=== PATIENT | male | born 1960 | race Caucasian/White ===

== ENCOUNTER 2016-10-04 04:52 | Emergency (ER) | payer BC ==
[2016-10-04] MEDS ORDERED: Bacitracin Oint 1 GM U/D Packet TOP ONE (05:11)
--- NOTE | 2016-10-04 05:18 | EDM.PDOC ---
ED HPI HEAD INJURY - General Chief Complaint: Head Injury Stated Complaint: FELL ON ICE- LARGE CUT ON BACK OF HEAD Time Seen by Provider: 10/04/16 05:17 Source of Information: Reports: Patient - History of Present Illness INITIAL COMMENTS - FREE TEXT/NARRATIVE: History of present illness: [] Patient presents with laceration near vertex, he slipped on ice going to his truck, denies loss of consciousness, he did have some mild dizziness on getting up however this is resolved pain the patient arrives to the area no fever nausea vomiting chills sweats no chest pain shortness breath headache dizziness or palpitation no bowel or urine symptoms Review of systems: As per history of present illness and below otherwise all systems reviewed and negative. Past medical history: As per history of present illness and as reviewed below otherwise noncontributory. Surgical history: As per history of present illness and as reviewed below otherwise noncontributory. Social history: No reported history of drug or alcohol abuse. Family history: As per history of present illness and as reviewed below otherwise noncontributory. Physical exam: HEENT: Atraumatic, normocephalic, pupils reactive, negative for conjunctival pallor or scleral icterus, mucous membranes moist, throat clear, neck supple, nontender, trachea midline. Lungs: Clear to auscultation, breath sounds equal bilaterally, chest nontender. Heart: S1S2, regular, negative for clicks, rubs, or JVD. Abdomen: Soft, nondistended, nontender. Negative for masses or hepatosplenomegaly. Negative for costovertebral tenderness. Pelvis: Stable nontender. Genitourinary: Deferred. Rectal: Deferred. Extremities: Atraumatic, negative for cords or calf pain. Neurovascular unremarkable. Neuro: Awake, alert, oriented. Cranial nerves II through XII unremarkable. Cerebellum unremarkable. Motor and sensory unremarkable throughout. Exam nonfocal. Skin 2 inch linear laceration running vertically to vertex Diagnostics: [] Patient refused head CT Therapeutics: [] Tetanus status is up-to-date #4 lyndsay placed without complication or complaint Impression: [] 2 inch linear laceration Definitive disposition and diagnosis as appropriate pending reevaluation and review of above. - Related Data Allergies/ADRs: Allergies Allergy/AdvReac Type Severity Reaction Status Date / Time No Known Allergies Allergy Verified 10/04/16 04:55 Home Meds: Home Meds Clopidogrel [Plavix] 75 mg PO DAILY 12/09/13 [History] Lisinopril 10 mg PO DAILY 12/09/13 [History] Metoprolol Succinate [Toprol XL] 25 mg PO DAILY 12/09/13 [History] Rosuvastatin [Crestor] 40 mg PO DAILY 12/09/13 [History] metFORMIN [metFORMIN XR] 500 mg PO BIDM 12/09/13 [History] Aspirin 81 mg PO DAILY 05/22/15 [History] Glimepiride 1 mg PO DAILY 05/22/15 [History] Nitroglycerin [Nitrostat] 0.4 mg PO ASDIRECTED 05/22/15 [History] hydrOXYzine HCl [hydrOXYzine] 25 mg PO DAILY 05/22/15 [History] Past Medical History - Past Health History Medical/Surgical History: Denies Medical/Surgical History HEENT History: Reports: Impaired vision Cardiovascular History: Reports: High cholesterol, Hypertension, [place] - Past Surgical History Other Cardiovascular Surgeries/Procedures: open heart surgery with 3 or 4 stents on his heart Other Musculoskeletal Surgeries/Procedures:: lower back surgery Social & Family History - Family History Family Medical History: Noncontributory - Tobacco Use Smoking Status *Q: Current Every Day Smoker Years of Tobacco use: 30 Packs/Tins Daily: 1 Used Tobacco, but Quit: Yes Month Tobacco Last Used: sep 2013 - Caffeine Use Caffeine Use: Reports: Coffee Caffeine Use Comment: 1cup every other day - Alcohol Use Days Per Week of Alcohol Use: 0 - Recreational Drug Use Recreational Drug Use: No ED ROS GENERAL - Review of Systems Review Of Systems: ROS reveals no pertinent complaints other than HPI. ED EXAM, HEAD INJURY - Physical Exam Exam: See Below Course - Vital Signs Last Recorded V/S: Last Vital Signs Temp 36.2 C 10/04/16 04:55 Pulse 95 10/04/16 04:55 Resp 19 10/04/16 04:55 BP 173/92 H 10/04/16 04:55 Pulse Ox 93 L 10/04/16 04:55 - Orders/Labs/Meds Meds: Medications Discontinued Medications Generic Name Dose Route Start Last Admin Trade Name Freq PRN Reason Stop Dose Admin Bacitracin 1 dose 10/04/16 05:11 Bacitracin Oint 1 Gm TOP 10/04/16 05:12 ONETIME ONE Departure - Departure Time of Disposition: 05:17 Disposition: Home, Self-Care 01 Condition: good Clinical Impression: Laceration, Concussion with no loss of consciousness Clinical Impression: (Ruled Out): Concussion injury of brain Forms: ED Department Discharge Additional Instructions: Standard wound care instruction Keep wound clean and dry for 48 hours Standard head injury precaution as discussed Return if symptoms persist or worsen or new concerning symptomatology develops Lyndsay out in 5 days
[2016-10-04 05:34] VITALS: BP 130/85
== END 2016-10-04 05:32 | disposition home or self-care (01) ==
LOC: MW.ED 04:52
DX: S01.81XA Laceration without foreign body of other part of head, initial encounter (principal); S06.0X0A Concussion without loss of consciousness, initial encounter; E78.00 Pure hypercholesterolemia, unspecified; I10 Essential (primary) hypertension; I25.2 Old myocardial infarction; F17.210 Nicotine dependence, cigarettes, uncomplicated; Z79.899 Other long term (current) drug therapy; Z79.82 Long term (current) use of aspirin; Z98.890 Other specified postprocedural states; W00.0XXA Fall on same level due to ice and snow, initial encounter
CPT/HCPCS: 99282; 99283

== ENCOUNTER → 2016-12-04 | Outpatient (CLI) | payer BC ==
[2016-12-04 08:57] LABS: CHLORIDE,CL 100 mmol/L (98-110); SODIUM,NA 136 mmol/L (136-146)
== END ==
LOC: MW.CHFP 07:54
PROVIDERS: ATTEND Family Medicine
DX: E11.9 Type 2 diabetes mellitus without complications (principal); I25.10 Atherosclerotic heart disease of native coronary artery without angina pectoris; E78.00 Pure hypercholesterolemia, unspecified
CPT/HCPCS: 36415; 80053; 80061; 82044; 83036

== ENCOUNTER 2017-02-04 08:12 | Emergency (ER) | payer BC ==
--- NOTE | 2017-02-04 08:27 | EDM.PDOC ---
ED HPI GENERAL MEDICAL PROBLEM - General Chief Complaint: Skin Complaint Stated Complaint: SORE ON TAIL BONE Time Seen by Provider: 02/04/17 08:26 Source of Information: Reports: Patient - History of Present Illness INITIAL COMMENTS - FREE TEXT/NARRATIVE: HISTORY AND PHYSICAL: History of present illness: []Patient presents with induration on his left buttock in the area of a pilonidal cyst however does not appear to be pilonidal at this time in origin, there is definite redness tenderness and induration there is no fluctuance at this time No fever nausea vomiting chills sweats no drainage for culture Review of systems: As per history of present illness and below otherwise all systems reviewed and negative. Past medical history: As per history of present illness and as reviewed below otherwise noncontributory. Surgical history: As per history of present illness and as reviewed below otherwise noncontributory. Social history: No reported history of drug or alcohol abuse. Family history: As per history of present illness and as reviewed below otherwise noncontributory. Physical exam: HEENT: Atraumatic, normocephalic, pupils reactive, negative for conjunctival pallor or scleral icterus, mucous membranes moist, throat clear, neck supple, nontender, trachea midline. Lungs: Clear to auscultation, breath sounds equal bilaterally, chest nontender. Heart: S1S2, regular, negative for clicks, rubs, or JVD. Abdomen: Soft, nondistended, nontender. Negative for masses or hepatosplenomegaly. Negative for costovertebral tenderness. Pelvis: Stable nontender. Genitourinary: Deferred. Rectal: Deferred. Extremities: Atraumatic, negative for cords or calf pain. Neurovascular unremarkable. Neuro: Awake, alert, oriented. Cranial nerves II through XII unremarkable. Cerebellum unremarkable. Motor and sensory unremarkable throughout. Exam nonfocal. Skin as per history of present illness otherwise unremarkable Diagnostics: []No drainage for culture Therapeutics: [] 's 1 g IM Bactrim double strength by mouth twice a day #20 no refill Warm pack Return if symptoms persist or worsen Impression: []Cellulitis left buttock, gluteal cleft Definitive disposition and diagnosis as appropriate pending reevaluation and review of above. left buttocks Pain Score (Numeric/FACES): 6 - Related Data Allergies Allergy/AdvReac Type Severity Reaction Status Date / Time No Known Allergies Allergy Verified 02/04/17 08:20 Home Meds: Home Meds Clopidogrel [Plavix] 75 mg PO DAILY 12/09/13 [History] Lisinopril 10 mg PO DAILY 12/09/13 [History] Metoprolol Succinate [Toprol XL] 25 mg PO DAILY 12/09/13 [History] Rosuvastatin [Crestor] 40 mg PO DAILY 12/09/13 [History] metFORMIN [metFORMIN XR] 500 mg PO BIDM 12/09/13 [History] Aspirin 81 mg PO DAILY 05/22/15 [History] Glimepiride 1 mg PO DAILY 05/22/15 [History] Nitroglycerin [Nitrostat] 0.4 mg PO ASDIRECTED 05/22/15 [History] hydrOXYzine HCl [hydrOXYzine] 25 mg PO DAILY 05/22/15 [History] Past Medical History - Past Health History Medical/Surgical History: Denies Medical/Surgical History HEENT History: Reports: Impaired Vision Cardiovascular History: Reports: High Cholesterol, Hypertension, [place] - Past Surgical History Other Musculoskeletal Surgeries/Procedures:: lower back surgery Social & Family History - Family History Family Medical History: Noncontributory - Tobacco Use Smoking Status *Q: Current Every Day Smoker Years of Tobacco use: 30 Packs/Tins Daily: 0.5 Used Tobacco, but Quit: Yes Month Tobacco Last Used: sep 2013 - Caffeine Use Caffeine Use: Reports: Coffee Caffeine Use Comment: 1cup every other day - Alcohol Use Days Per Week of Alcohol Use: 0 - Recreational Drug Use Recreational Drug Use: No ED ROS GENERAL - Review of Systems Review Of Systems: ROS reveals no pertinent complaints other than HPI. ED EXAM, SKIN/RASH Exam: See Below Course - Vital Signs Last Recorded V/S: Last Vital Signs Temp 35.7 C 02/04/17 08:20 Pulse 93 02/04/17 08:20 Resp 18 02/04/17 08:20 BP 110/88 02/04/17 08:20 Pulse Ox 98 02/04/17 08:20 - Orders/Labs/Meds Orders: Active Orders 24 hr Category Date Time Status Ertapenem [INVanz] Med 02/04/17 08:38 Stat 1 gm IM NOW STA Departure - Departure Time of Disposition: 08:40 Disposition: Home, Self-Care 01 Condition: Good Clinical Impression: Cellulitis - Discharge Information Forms: ED Department Discharge Additional Instructions: Medication as prescribed Warm pack 20 minute intervals 3 times daily to promote drainage Return if symptoms persist or worsen Follow-up with primary care in one week [facility] [address] [place] [id number] The following information is given to patients seen in the emergency department who are being discharged to home. This information is to outline your options for follow-up care. We provide all patients seen in our emergency department with a follow-up referral. The need for follow-up, as well as the timing and circumstances, are variable depending upon the specifics of your emergency department visit. If you don't have a primary care physician on staff, we will provide you with a referral. We always advise you to contact your personal physician following an emergency department visit to inform them of the circumstance of the visit and for follow-up with them and/or the need for any referrals to a consulting specialist. The emergency department will also refer you to a specialist when appropriate. This referral assures that you have the opportunity for follow-up care with a specialist. All of these measure are taken in an effort to provide you with optimal care, which includes your follow-up. Under all circumstances we always encourage you to contact your private physician who remains a resource for coordinating your care. When calling for follow-up care, please make the office aware that this follow-up is from your recent emergency room visit. If for any reason you are refused follow-up, please contact the [facility] emergency department at and asked to speak to the emergency department charge nurse. - My Orders Last 24 Hours: My Active Orders 02/04/17 08:38 Ertapenem [INVanz] 1 gm IM NOW STA - Assessment/Plan Last 24 Hours: My Active Orders 02/04/17 08:38 Ertapenem [INVanz] 1 gm IM NOW STA
[2017-02-04] MEDS ORDERED: Ertapenem 1 GM Vial IM STA (08:38)
[2017-02-04] MEDS ORDERED: Lidocaine 2% 5 ML SDV INJECT ONE (08:44)
[2017-02-04 09:21] VITALS: BP 128/83
== END 2017-02-04 09:14 | disposition home or self-care (01) ==
LOC: MW.ED 08:12
DX: L03.317 Cellulitis of buttock (principal); E78.00 Pure hypercholesterolemia, unspecified; I10 Essential (primary) hypertension; I25.2 Old myocardial infarction; F17.210 Nicotine dependence, cigarettes, uncomplicated; Z79.84 Long term (current) use of oral hypoglycemic drugs; Z79.82 Long term (current) use of aspirin; Z79.899 Other long term (current) drug therapy
CPT/HCPCS: 96372; 99282; J1335; 99283

== ENCOUNTER 2017-02-05 08:52 | Inpatient (IN) | payer BC ==
[2017-02-05] MEDS ORDERED: Sodium Chloride 0.9% 10 ML Syringe FLUSH PRN (09:17)
[2017-02-05] MEDS ORDERED: Sodium Chloride 0.9% 2.5 ML Syringe FLUSH PRN (09:17)
[2017-02-05] MEDS ORDERED: Sodium Chloride 0.9% 1,000 ML IV ONE (09:18)
[2017-02-05] MEDS ORDERED: Ondansetron 4 MG/2 ML SDV IVPUSH ONE (09:18)
[2017-02-05] MEDS ORDERED: fentaNYL 100 MCG/2 ML SDV IVPUSH ONE (09:18)
[2017-02-05] MEDS ORDERED: Iopamidol 755 MG/ML 500 ML Multipack Bottle IVPUSH STA (09:21)
--- NOTE | 2017-02-05 09:25 | EDM.PDOC ---
ED HPI GENERAL MEDICAL PROBLEM - General Chief Complaint: Skin Complaint Stated Complaint: PAINFUL CYST ON TAILBONE Time Seen by Provider: 02/05/17 09:16 - History of Present Illness INITIAL COMMENTS - FREE TEXT/NARRATIVE: HISTORY AND PHYSICAL: History of present illness: Patient is 56-year-old white male with history of diabetes who presents with a concern of pain swelling and erythema in his left buttock this is inferior to the cleft and extends along the medial aspect of his left buttock with induration and erythema warmth and exquisite tenderness he denies fever chills states the pain is got increasingly worse since yesterday when he was seen in the emergency department he did not follow through when given prescriptions filled Review of systems: As per history of present illness and below otherwise all systems reviewed and negative. Past medical history: As per history of present illness and as reviewed below otherwise noncontributory. Surgical history: As per history of present illness and as reviewed below otherwise noncontributory. Social history: No reported history of drug or alcohol abuse. Family history: As per history of present illness and as reviewed below otherwise noncontributory. Physical exam: HEENT: Atraumatic, normocephalic, pupils reactive, negative for conjunctival pallor or scleral icterus, mucous membranes moist, throat clear, neck supple, nontender, trachea midline. Lungs: Clear to auscultation, breath sounds equal bilaterally, chest nontender. Heart: S1S2, regular, negative for clicks, rubs, or JVD. Abdomen: Soft, nondistended, nontender. Negative for masses or hepatosplenomegaly. Negative for costovertebral tenderness. Pelvis: Stable nontender. Genitourinary: Deferred. Rectal: Patient is proximal 4-5 cm medial aspect of the left buttock that extends inferiorly and against distal to the cleft this is indurated with exquisite tenderness to palpation in precludes rectal examination Extremities: Atraumatic, negative for cords or calf pain. Neurovascular unremarkable. Neuro: Awake, alert, oriented. Cranial nerves II through XII unremarkable. Cerebellum unremarkable. Motor and sensory unremarkable throughout. Exam nonfocal. Diagnostics: CBC CMP PT/INR blood culture 2 chest x-ray CT pelvis with IV contrast Therapeutics: Normal saline 1 L bolus vancomycin 1 g IV Impression: #1 cellulitis left buttock with probable abscess #2 diabetes Definitive disposition and diagnosis as appropriate pending reevaluation and review of above. left buttock area Pain Score (Numeric/FACES): 9 - Related Data Allergies Allergy/AdvReac Type Severity Reaction Status Date / Time No Known Allergies Allergy Verified 02/05/17 09:00 Home Meds: Home Meds Clopidogrel [Plavix] 75 mg PO DAILY 12/09/13 [History] Lisinopril 10 mg PO DAILY 12/09/13 [History] Metoprolol Succinate [Toprol XL] 25 mg PO DAILY 12/09/13 [History] Rosuvastatin [Crestor] 40 mg PO DAILY 12/09/13 [History] metFORMIN [metFORMIN XR] 500 mg PO BIDM 12/09/13 [History] Aspirin 81 mg PO DAILY 05/22/15 [History] Glimepiride 1 mg PO DAILY 05/22/15 [History] Nitroglycerin [Nitrostat] 0.4 mg PO ASDIRECTED 05/22/15 [History] hydrOXYzine HCl [hydrOXYzine] 25 mg PO DAILY 05/22/15 [History] Past Medical History - Past Health History Medical/Surgical History: Denies Medical/Surgical History HEENT History: Reports: Impaired Vision Cardiovascular History: Reports: High Cholesterol, Hypertension, [place] Endocrine/Metabolic History: Reports: Diabetes, Type II - Past Surgical History Other Musculoskeletal Surgeries/Procedures:: lower back surgery Social & Family History - Family History Family Medical History: Noncontributory - Tobacco Use Smoking Status *Q: Current Every Day Smoker Years of Tobacco use: 30 Packs/Tins Daily: 1 Used Tobacco, but Quit: Yes Month Tobacco Last Used: sep 2013 - Caffeine Use Caffeine Use: Reports: Coffee Caffeine Use Comment: 1cup every other day - Alcohol Use Days Per Week of Alcohol Use: 0 - Recreational Drug Use Recreational Drug Use: No ED ROS GENERAL - Review of Systems Review Of Systems: ROS reveals no pertinent complaints other than HPI. ED EXAM, SKIN/RASH Exam: See Below (See dictation) Course - Vital Signs Last Recorded V/S: Last Vital Signs Temp 36.1 C 02/05/17 09:01 Pulse 98 02/05/17 09:01 Resp 20 02/05/17 09:01 BP 118/87 02/05/17 09:01 Pulse Ox 94 L 02/05/17 09:01 - Orders/Labs/Meds Orders: Active Orders 24 hr Category Date Time Status Chest 2V [CR] Stat Exams 02/05/17 09:17 Taken Pelvis w Cont [CT] Stat Exams 02/05/17 09:17 Taken CULTURE BLOOD [BC] Stat Lab 02/05/17 09:30 Received CULTURE BLOOD [BC] Stat Lab 02/05/17 09:41 Received UA W/MICROSCOPIC [URIN] Stat Lab 02/05/17 09:16 Uncollected Sodium Chloride 0.9% [Saline Flush] Med 02/05/17 09:17 Active 10 ml FLUSH ASDIRECTED PRN Sodium Chloride 0.9% [Saline Flush] Med 02/05/17 09:17 Active 2.5 ml FLUSH ASDIRECTED PRN Blood Culture x2 Reflex Set [OM.PC] Stat Oth 02/05/17 09:16 Ordered Saline Lock Insert [OM.PC] Stat Oth 02/05/17 09:16 Ordered Medication Orders Sodium Chloride (Saline Flush) 10 ml FLUSH ASDIRECTED PRN PRN Reason: Keep Vein Open Sodium Chloride (Saline Flush) 2.5 ml FLUSH ASDIRECTED PRN PRN Reason: Keep Vein Open Labs: Laboratory Tests 02/05/17 02/05/17 02/05/17 Range/Units 09:41 09:41 09:41 WBC 13.77 H (4.0-11.0) K/uL RBC 5.70 (4.50-5.90) M/uL Hgb 16.8 (13.0-17.0) g/dL Hct 48.9 (38.0-50.0) % MCV 85.8 (80.0-98.0) fL MCH 29.5 (27.0-32.0) pg MCHC 34.4 (31.0-37.0) g/dL RDW Std Deviation 39.8 (28.0-62.0) fl RDW Coeff of Maegan 13 (11.0-15.0) % Plt Count 256 (150-400) K/uL MPV 11.80 (7.40-12.00) fL Neut % (Auto) 76.0 (48.0-80.0) % Lymph % (Auto) 12.3 L (16.0-40.0) % [place] % (Auto) 10.8 (0.0-15.0) % Eos % (Auto) 0.7 (0.0-7.0) % Baso % (Auto) 0.2 (0.0-1.5) % Neut # (Auto) 10.5 H (1.4-5.7) K/uL Lymph # (Auto) 1.7 (0.6-2.4) K/uL [place] # (Auto) 1.5 H (0.0-0.8) K/uL Eos # (Auto) 0.1 (0.0-0.7) K/uL Baso # (Auto) 0.0 (0.0-0.1) K/uL INR 0.94 (0.86-1.11) ABG pH (7.35-7.45) ABG pCO2 (35-45) mmHG ABG pO2 (75-100) mmHG ABG HCO3 (22-26) mEq/L ABG Total CO2 ABG Base Excess (-2.0-2.0) Sodium 128 L (136-146) mmol/L Potassium 4.3 (3.5-5.1) mmol/L Chloride 94 L (98-110) mmol/L Carbon Dioxide 21 (21-31) mmol/L BUN 16 (6.0-23.0) mg/dL Creatinine 1.5 (0.6-1.5) mg/dL Est Cr Clr Drug Dosing 57.17 mL/min Estimated GFR (MDRD) 48.1 ml/min Glucose 682 H* (60-110) mg/dL POC Glucose (60-110) mg/dL Calcium 9.6 (8.8-10.8) mg/dL Total Bilirubin 0.8 (0.1-1.5) mg/dL AST 20 (5-40) IU/L ALT 19 (8-54) IU/L Alkaline Phosphatase 142 (40-150) Total Protein 7.8 (6.0-8.0) g/dL Albumin 3.9 (3.5-5.0) g/dL Globulin 3.9 H (2.0-3.5) g/dL Albumin/Globulin Ratio 1.0 L (1.3-2.8) 02/05/17 02/05/17 Range/Units 11:05 11:09 WBC (4.0-11.0) K/uL RBC (4.50-5.90) M/uL Hgb (13.0-17.0) g/dL Hct (38.0-50.0) % MCV (80.0-98.0) fL MCH (27.0-32.0) pg MCHC (31.0-37.0) g/dL RDW Std Deviation (28.0-62.0) fl RDW Coeff of Maegan (11.0-15.0) % Plt Count (150-400) K/uL MPV (7.40-12.00) fL Neut % (Auto) (48.0-80.0) % Lymph % (Auto) (16.0-40.0) % [place] % (Auto) (0.0-15.0) % Eos % (Auto) (0.0-7.0) % Baso % (Auto) (0.0-1.5) % Neut # (Auto) (1.4-5.7) K/uL Lymph # (Auto) (0.6-2.4) K/uL [place] # (Auto) (0.0-0.8) K/uL Eos # (Auto) (0.0-0.7) K/uL Baso # (Auto) (0.0-0.1) K/uL INR (0.86-1.11) ABG pH 7.358 (7.35-7.45) ABG pCO2 49 H (35-45) mmHG ABG pO2 52 L (75-100) mmHG ABG HCO3 28 H (22-26) mEq/L ABG Total CO2 24.1 ABG Base Excess 1.6 (-2.0-2.0) Sodium (136-146) mmol/L Potassium (3.5-5.1) mmol/L Chloride (98-110) mmol/L Carbon Dioxide (21-31) mmol/L BUN (6.0-23.0) mg/dL Creatinine (0.6-1.5) mg/dL Est Cr Clr Drug Dosing mL/min Estimated GFR (MDRD) ml/min Glucose (60-110) mg/dL POC Glucose 454 H (60-110) mg/dL Calcium (8.8-10.8) mg/dL Total Bilirubin (0.1-1.5) mg/dL AST (5-40) IU/L ALT (8-54) IU/L Alkaline Phosphatase (40-150) Total Protein (6.0-8.0) g/dL Albumin (3.5-5.0) g/dL Globulin (2.0-3.5) g/dL Albumin/Globulin Ratio (1.3-2.8) Meds: Medications Generic Name Dose Route Start Last Admin Trade Name Freq PRN Reason Stop Dose Admin Sodium Chloride 10 ml 02/05/17 09:17 Saline Flush FLUSH ASDIRECTED PRN Keep Vein Open Sodium Chloride 2.5 ml 02/05/17 09:17 Saline Flush FLUSH ASDIRECTED PRN Keep Vein Open Discontinued Medications Generic Name Dose Route Start Last Admin Trade Name Freq PRN Reason Stop Dose Admin Fentanyl 50 mcg 02/05/17 09:18 02/05/17 09:44 Sublimaze IVPUSH 02/05/17 09:19 50 mcg ONETIME ONE Administration Sodium Chloride 1,000 mls @ 999 mls/hr 02/05/17 09:18 02/05/17 09:43 Normal Saline IV 02/05/17 10:18 999 mls/hr STAT ONE Administration Vancomycin HCl 1 gm/ Sodium 250 mls @ 250 mls/hr 02/05/17 09:18 02/05/17 09: 44 Chloride IV 02/05/17 10:17 250 mls/hr ONETIME ONE Administration Insulin Human Regular 10 unit 02/05/17 10:29 02/05/17 11:06 Novolin R IVPUSH 02/05/17 10:30 10 units ONETIME ONE Administration Protocol Insulin Human Regular 10 unit 02/05/17 10:30 02/05/17 11:06 Novolin R SUBCUT 02/05/17 10:31 10 units ONETIME ONE Administration Protocol Iopamidol 100 ml 02/05/17 09:21 Isovue Multipack-370 (76%) IVPUSH 02/05/17 09:22 ONETIME STA Iopamidol 60 ml 02/05/17 10:41 02/05/17 10:42 Isovue-300 (61%) IV 02/05/17 10:42 60 ml ONETIME STA Administration Ondansetron HCl 4 mg 02/05/17 09:18 02/05/17 09:44 Zofran IVPUSH 02/05/17 09:19 4 mg ONETIME ONE Administration Departure - Departure Time of Disposition: 11:22 Disposition: Admitted As Inpatient 64 Condition: Good Clinical Impression: Abscess, Cellulitis, Diabetes - Discharge Information Forms: ED Department Discharge - My Orders Last 24 Hours: My Active Orders 02/05/17 09:16 UA W/MICROSCOPIC [URIN] Stat Blood Culture x2 Reflex Set [OM.PC] Stat Saline Lock Insert [OM.PC] Stat 02/05/17 09:17 Chest 2V [CR] Stat Pelvis w Cont [CT] Stat Sodium Chloride 0.9% [Saline Flush] 10 ml FLUSH ASDIRECTED PRN Sodium Chloride 0.9% [Saline Flush] 2.5 ml FLUSH ASDIRECTED PRN 02/05/17 09:30 CULTURE BLOOD [BC] Stat 02/05/17 09:41 CULTURE BLOOD [BC] Stat - Assessment/Plan Last 24 Hours: My Active Orders 02/05/17 09:16 UA W/MICROSCOPIC [URIN] Stat Blood Culture x2 Reflex Set [OM.PC] Stat Saline Lock Insert [OM.PC] Stat 02/05/17 09:17 Chest 2V [CR] Stat Pelvis w Cont [CT] Stat Sodium Chloride 0.9% [Saline Flush] 10 ml FLUSH ASDIRECTED PRN Sodium Chloride 0.9% [Saline Flush] 2.5 ml FLUSH ASDIRECTED PRN 02/05/17 09:30 CULTURE BLOOD [BC] Stat 02/05/17 09:41 CULTURE BLOOD [BC] Stat
[2017-02-05] MEDS ORDERED: Insulin Regular, Human 100 Units/ML 10 ML Vial IVPUSH ONE (10:29)
[2017-02-05] MEDS ORDERED: Insulin Regular, Human 100 Units/ML 10 ML Vial SUBCUT ONE (10:30)
[2017-02-05] MEDS ORDERED: Iopamidol 612 MG/ML 30 ML SDV IV STA (10:41)
[2017-02-05] MEDS ORDERED: Ondansetron 4 MG/2 ML SDV IVPUSH PRN (12:05)
[2017-02-05] MEDS ORDERED: oxyCODONE 5 MG Tab PO PRN (12:05)
[2017-02-05] MEDS ORDERED: Enoxaparin 40 MG/0.4 ML Syringe SUBCUT SCH ×2 (12:15→21:00)
--- NOTE | 2017-02-05 12:27 | PCM.HP ---
H&P History of Present Illness - General Date of Service: 02/05/17 Admit Problem/Dx: Cellulitis with abscess to L buttock Source of Information: Patient History Limitations: Reports: No Limitations - History of Present Illness Initial Comments - Free Text/Narative: This 56 year old male with pmh of CAD, hx SC several years ago with 3-4 stents, DM type 2, and tobacco dependence presented to the ED this morning with complaints of worsening pain and swelling to L buttock. He was here yesterday for same complaint, was sent home with Bactrim DS, but was unable to fill it due to the holiday. He reports the pain is 10/10 when he is moving or sitting, he currently is lying on his side and pain is tolerable 3/10. He reports this pain started 4-5 days ago and has progressively worsened to the point he sought ED evaluation. He denies drainage to buttock. He denies fevers, chills, chest pain, SOB or palpitations. He denies N/V abdominal pain, black or bloody BMs, and no urinary symptoms. He denies recent trauma to buttock, no scrapes or abrasion. Never had something like this before. He reports taking his medications normally, over the last few days he has noticed polyuria and polydypsia. BS running 200s at home. In the ED leukocytosis noted at 13,000, Na 128, Cl 94, BS 682 (corrected serum Na 139). CXR negative. Pelivs CT reveals subcutaenous abscess measuring 2.5 cm within left gluteal fold, no evidence of abscess or inflammation about the rectum or ischial rectal fossa fat, no evidence of osteomyelitis. He will be admitted for cellulitis with abscess. Dr. Arboleda, general surgery, consulted PCP, Dr Jc. left buttock area Pain Score (Numeric/FACES): 9 - Related Data Allergies/Adverse Reactions: Allergies Allergy/AdvReac Type Severity Reaction Status Date / Time No Known Allergies Allergy Verified 02/05/17 09:00 Home Medications: Home Meds Clopidogrel [Plavix] 75 mg PO DAILY 12/09/13 [History] Lisinopril 10 mg PO DAILY 12/09/13 [History] Metoprolol Succinate [Toprol XL] 25 mg PO DAILY 12/09/13 [History] Rosuvastatin [Crestor] 40 mg PO DAILY 12/09/13 [History] metFORMIN [metFORMIN XR] 500 mg PO BIDM 12/09/13 [History] Aspirin 81 mg PO DAILY 05/22/15 [History] Glimepiride 1 mg PO DAILY 05/22/15 [History] Nitroglycerin [Nitrostat] 0.4 mg PO ASDIRECTED 05/22/15 [History] hydrOXYzine HCl [hydrOXYzine] 25 mg PO DAILY 05/22/15 [History] Past Medical History - Past Health History Medical/Surgical History: Denies Medical/Surgical History HEENT History: Reports: Impaired Vision Cardiovascular History: Reports: High Cholesterol, Hypertension, [place] Respiratory History: Denies: COPD Endocrine/Metabolic History: Reports: Diabetes, Type II - Past Surgical History Other Musculoskeletal Surgeries/Procedures:: lower back surgery Social & Family History - Family History Family Medical History: Noncontributory - Tobacco Use Smoking Status *Q: Current Every Day Smoker Years of Tobacco use: 30 Packs/Tins Daily: 1 Used Tobacco, but Quit: Yes Month Tobacco Last Used: sep 2013 - Caffeine Use Caffeine Use: Reports: Coffee Caffeine Use Comment: 1cup every other day - Alcohol Use Days Per Week of Alcohol Use: 0 - Recreational Drug Use Recreational Drug Use: No H&P Review of Systems - Review of Systems: Review Of Systems: See Below General: Reports: No Symptoms. Denies: Fever, Chills, Malaise HEENT: Reports: No Symptoms. Denies: Sinus Congestion Pulmonary: Reports: No Symptoms. Denies: Shortness of Breath, Cough, Sputum Cardiovascular: Reports: No Symptoms. Denies: Chest Pain, Palpitations, Edema Gastrointestinal: Reports: No Symptoms. Denies: Abdominal Pain, Black Stool, Bloody Stool, Nausea, Vomiting Genitourinary: Reports: No Symptoms Musculoskeletal: Reports: No Symptoms. Denies: Neck Pain, Back Pain Skin: Reports: Erythema (pain to L gluteal fold) Hematologic/Lymphatic: Reports: No Symptoms Immunologic: Reports: No Symptoms Exam - Exam Exam: See Below - Vital Signs Vital Signs: Last Vital Signs Temp 97 F 02/05/17 09:01 Pulse 85 02/05/17 11:26 Resp 18 02/05/17 11:26 BP 98/53 L 02/05/17 11:26 Pulse Ox 91 L 02/05/17 11:26 Weight: 94 kg - Exam General: Alert, Oriented, Cooperative HEENT: Conjunctiva Clear, Mucosa Moist & [place] Lungs: Clear to Auscultation, Normal Respiratory Effort Cardiovascular: Regular Rate, Regular Rhythm Abdomen: Normal Bowel Sounds, Soft. No: Distention, Guarding, Rigidity, Tenderness Rectal (Males) Exam: Other (L gluteal fold has induration 2-3 cm out from center , fluctuance noted to center of erythema. Very tender to palpation. ) Extremities: Normal Inspection, Normal Pulses Neuro Extensive - Mental Status: Alert, Oriented x3 Neuro Extensive - Motor, Sensory, Reflexes: CN II-XII Intact Psychiatric: Alert, Normal Affect, Normal Mood - Patient Data Result Diagrams: 02/05/17 09:41 02/05/17 09:41 *Q Meaningful Use (ADM) - VTE *Q VTE Criteria *Q: - VTE Risk Assess *Q Each Risk Factor Represents 1 Point: Age 41 - 59 years, Minor Surgery Planned Total Score 1 Point Risk Factors: 2 Each Risk Factor Represents 2 Points: None Total Score 2 Point Risk Factors: 0 Each Risk Factor Represents 3 Points: None Total Score 3 Point Risk Factors: 0 Each Risk Factor Represents 5 Points: None Total Score 5 Point Risk Factors: 0 Venous Thromboembolism Risk Factor Score *Q: 2 - Stroke *Q Stroke Criteria *Q: - AMI *Q AMI Criteria *Q: - Problem List (1) Abscess SNOMED Code(s): 055237577 ICD Code: L02.91 - CUTANEOUS ABSCESS, UNSPECIFIED Status: Acute Current Visit: Yes Problem Details: L gluteal fold (2) DM type 2 (diabetes mellitus, type 2) SNOMED Code(s): 98685008 ICD Code: E11.9 - TYPE 2 DIABETES MELLITUS WITHOUT COMPLICATIONS Status: Chronic Current Visit: Yes Qualifiers: Diabetes mellitus complication status: with hyperglycemia Diabetes mellitus detention insulin use: without detention use Qualified Code(s): E11.65 - Type 2 diabetes mellitus with hyperglycemia (3) CAD (coronary artery disease) SNOMED Code(s): 57168605 ICD Code: I25.10 - ATHSCL HEART DISEASE OF [place] CORONARY ARTERY W/O ANG PCTRS Status: Chronic Current Visit: Yes Qualifiers: Coronary Disease-Associated Artery/Lesion type: [place] artery [place] vs. transplanted heart: [place] heart Associated angina: without angina Qualified Code(s): I25.10 - Atherosclerotic heart disease of [place] coronary artery without angina pectoris (4) Hx of myocardial infarction SNOMED Code(s): 761796247 ICD Code: I25.2 - OLD MYOCARDIAL INFARCTION Status: Chronic Current Visit : Yes (5) Tobacco abuse SNOMED Code(s): 961173174, 232852043 ICD Code: Z72.0 - TOBACCO USE Status: Chronic Current Visit: Yes Problem List Initiated/Reviewed/Updated: Yes Orders Last 24hrs: Active Orders 24 hr Category Date Time Status Blood Glucose Check, Bedside [RC] TIDAC Care 02/05/17 12:13 Ordered Intake and Output [RC] QSHIFT Care 02/05/17 12:05 Ordered May Shower [RC] ASDIRECTED Care 02/05/17 12:05 Ordered Notify Provider Consults [RC] ASDIRECTED Care 02/05/17 12:08 Ordered Oxygen Therapy [RC] PRN Care 02/05/17 12:05 Ordered Up ad Elo [RC] ASDIRECTED Care 02/05/17 12:05 Ordered VTE/DVT Education [RC] PER UNIT ROUTINE Care 02/05/17 12:05 Ordered Vital Signs [RC] Q4H Care 02/05/17 12:05 Ordered Consult to Physician [CONS] Routine Cons 02/05/17 12:06 Ordered [place] [employer] Diet [DIET] Diet 02/05/17 Lunch Ordered BASIC METABOLIC PANEL,BMP [CHEM] AM Lab 02/06/17 05:11 Ordered BASIC METABOLIC PANEL,BMP [CHEM] AM Lab 02/07/17 05:11 Ordered BASIC METABOLIC PANEL,BMP [CHEM] AM Lab 02/08/17 05:11 Ordered BASIC METABOLIC PANEL,BMP [CHEM] AM Lab 02/09/17 05:11 Ordered BASIC METABOLIC PANEL,BMP [CHEM] AM Lab 02/10/17 05:11 Ordered CBC WITH AUTO DIFF [HEME] AM Lab 02/06/17 05:11 Ordered CBC WITH AUTO DIFF [HEME] AM Lab 02/07/17 05:11 Ordered CBC WITH AUTO DIFF [HEME] AM Lab 02/08/17 05:11 Ordered CBC WITH AUTO DIFF [HEME] AM Lab 02/09/17 05:11 Ordered CBC WITH AUTO DIFF [HEME] AM Lab 02/10/17 05:11 Ordered Enoxaparin [Lovenox] Med 02/05/17 12:15 Ordered 40 mg SUBCUT DAILY Insulin Aspart [NovoLOG] Med 02/05/17 12:15 Ordered See Protocol SUBCUT TIDAC Morphine Med 02/05/17 12:05 Ordered 3 mg IVPUSH Q2H PRN Nicotine [Habitrol] Med 02/05/17 12:15 Ordered 7 mg TRDERM DAILY Ondansetron [Zofran] Med 02/05/17 12:05 Ordered 4 mg IVPUSH Q4H PRN Sodium Chloride 0.9% [Normal Saline] 1,000 ml Med 02/05/17 12:15 Ordered IV ASDIRECTED Vancomycin 1,500 mg Med 02/05/17 21:00 Active Sodium Chloride 0.9% [Normal Saline] 500 ml IV Q12H Vancomycin Pharmacy to Dose [Pharmacy to Dose - Med 02/05/17 12:15 Ordered Vancomycin] 1 dose .XX ASDIRECTED oxyCODONE Med 02/05/17 12:05 Ordered 5 mg PO Q4H PRN Resuscitation Status Routine Resus Stat 02/05/17 12:05 Ordered Medication Orders Enoxaparin Sodium (Lovenox) 40 mg SUBCUT Q24H [place] Sodium Chloride (Normal Saline) 1,000 mls @ 150 mls/hr IV ASDIRECTED [place] Vancomycin HCl 1,500 mg/ (Sodium Chloride) 500 mls @ 250 mls/hr IV Q12H [place] Insulin Aspart (Novolog) 0 unit SUBCUT TIDAC [place] PRN Reason: Protocol Morphine Sulfate (Morphine) 3 mg IVPUSH Q2H PRN PRN Reason: Pain (severe 7-10) Nicotine (Habitrol) 7 mg TRDERM DAILY [place] Ondansetron HCl (Zofran) 4 mg IVPUSH Q4H PRN PRN Reason: Nausea Oxycodone HCl (Oxycodone) 5 mg PO Q4H PRN PRN Reason: Pain (moderate 4-6) Sodium Chloride (Saline Flush) 10 ml FLUSH ASDIRECTED PRN PRN Reason: Keep Vein Open Sodium Chloride (Saline Flush) 2.5 ml FLUSH ASDIRECTED PRN PRN Reason: Keep Vein Open Vancomycin HCl (Pharmacy To Dose - Vancomycin) 1 dose .XX ASDIRECTED [facility] Assessment/Plan Comment:: This 56 year old male admitted for L gluteal fold abscess 1. Cellulitis with abscess: Continue Vancomycin, will add Zosyn per recommendations of Dr. Arboleda. Plan for OR this afternoon for I&D, if labs corrected. Recheck CBC in am 2. Hyperglycemia: NPO for now, continue insulin Q6hr, check BMP at 1600. Novolog SSI. 3. Hyponatremia: corrected serum NA 139, recheck at 1600. 4. CAD: obtaining home meds. Will continue post-operative. VTE prophylaxis: Lovenox after OR. Dispo: 2-4 days.
[2017-02-05] MEDS: Nicotine 7 MG/24 Hr Patch TRDERM SCH (12:33)
[2017-02-05] MEDS: Insulin Aspart 100 Units/ML 3 ML Pen SUBCUT SCH ×3 (12:34→23:58)
[2017-02-05] MEDS: Sodium Chloride 0.9% 1,000 ML IV SCH ×2 (13:05→17:36)
[2017-02-05] MEDS: Piperacillin/Tazobactam 3.375 GM in Sodium Chloride 0.9% 50 ML IV SCH ×2 (13:41→18:11)
[2017-02-05] MEDS ORDERED: Lidocaine 1% with EPINEPHrine 1:100,000 20 ML MDV ONE (13:47)
[2017-02-05] MEDS ORDERED: Bupivacaine 0.5% 30 ML SDV ONE (13:47)
[2017-02-05] MEDS ORDERED: Bupivacaine 0.25% 10 ML SDV ONE (13:47)
--- NOTE | 2017-02-05 13:58 | PCM.CONS ---
H&P History of Present Illness - General Date of Service: 02/05/17 Admit Problem/Dx: Cellulitis with abscess to L buttock Source of Information: Patient History Limitations: Reports: Other (In significant amount of pain ) - History of Present Illness Initial Comments - Free Text/Narative: Patient is a 56 year old diabetic smoker who presents with a left buttock abscess. The patient noticed the area 4-5 days ago. He presented to the ER yesterday and was given Invanz and prescribed antibiotics. 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 Today he re-presented to the ED with worse pain, swelling, and induration. It is not draining. He denies fevers, chills, chest pain, SOB or palpitations. He notes polyuria and polydypsia. He denies having anything like this before however he did have a left lung empyema. He developed this after a fall (most likely due to a retained hemothroax that became secondarily infected). 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 left buttock area Pain Score (Numeric/FACES): 5 - Related Data Allergies/Adverse Reactions: Allergies Allergy/AdvReac Type Severity Reaction Status Date / Time No Known Allergies Allergy Verified 02/05/17 09:00 Home Medications: Home Meds Clopidogrel [Plavix] 75 mg PO DAILY 12/09/13 [History] Lisinopril 10 mg PO DAILY 12/09/13 [History] Metoprolol Succinate [Toprol XL] 25 mg PO DAILY 12/09/13 [History] Rosuvastatin [Crestor] 40 mg PO DAILY 12/09/13 [History] metFORMIN [metFORMIN XR] 500 mg PO BIDM 12/09/13 [History] Aspirin 81 mg PO DAILY 05/22/15 [History] Glimepiride 1 mg PO DAILY 05/22/15 [History] Nitroglycerin [Nitrostat] 0.4 mg PO ASDIRECTED 05/22/15 [History] hydrOXYzine HCl [hydrOXYzine] 25 mg PO DAILY 05/22/15 [History] Past Medical History HEENT History: Reports: Impaired Vision Cardiovascular History: Reports: High Cholesterol, Hypertension, [place] Respiratory History: Reports: Other (See Below) (History of left posterior thoracotomy due to empyema). Denies: COPD Endocrine/Metabolic History: Reports: Diabetes, Type II - Past Surgical History Cardiovascular Surgical History: Reports: Coronary Artery Bypass Respiratory Surgical History: Reports: Other (See Below) (Left posterior thoracotomy for lung decortication and empyema drainage) GI Surgical History: Reports: None Other Musculoskeletal Surgeries/Procedures:: lower back surgery Social & Family History - Family History Family Medical History: Noncontributory - Tobacco Use Smoking Status *Q: Current Every Day Smoker Years of Tobacco use: 30 Packs/Tins Daily: 1 Used Tobacco, but Quit: Yes Month Tobacco Last Used: sep 2013 Second Hand Smoke Exposure: No - Caffeine Use Caffeine Use: Reports: Coffee Caffeine Use Comment: 1cup every other day - Alcohol Use Days Per Week of Alcohol Use: 0 - Recreational Drug Use Recreational Drug Use: No H&P Review of Systems - Review of Systems: Review Of Systems: ROS reveals no pertinent complaints other than HPI. Exam - Exam Exam: See Below - Vital Signs Vital Signs: Last Vital Signs Temp 36.1 C 02/05/17 09:01 Pulse 85 02/05/17 11:26 Resp 18 02/05/17 11:26 BP 98/53 L 02/05/17 11:26 Pulse Ox 91 L 02/05/17 11:26 Weight: 94 kg - Exam General: Alert, Oriented, Severe Distress HEENT: Hearing Intact Neck: Trachea Midline Lungs: Clear to Auscultation, Normal Respiratory Effort Cardiovascular: Regular Rate, Regular Rhythm Abdomen: Soft, Other (Left buttock inflammed and exquistely tender to palpation. Fluctuant area along mid buttocks crease. ) Extremities: Normal Inspection - Patient Data Lab Results Last 24 hrs: Laboratory Results - last 24 hr 02/05/17 02/05/17 Range/Units 12:15 12:32 POC Glucose 322 H (60-110) mg/dL Urine Color YELLOW Urine Appearance CLEAR Urine pH 5.0 (5.0-8.0) Ur Specific [place] 1.010 (1.001-1.035) Urine Protein NEGATIVE (NEGATIVE) mg/dL Urine Glucose (UA) >=1000 (NEGATIVE) mg/dL Urine Ketones NEGATIVE (NEGATIVE) mg/dL Urine Occult Blood TRACE-LYSED (NEGATIVE) Urine Nitrite NEGATIVE (NEGATIVE) Urine Bilirubin NEGATIVE (NEGATIVE) Urine Urobilinogen 0.2 (<2.0) EU/dL Ur Leukocyte Esterase NEGATIVE (NEGATIVE) Urine RBC 0-1 (0-2/HPF) Urine WBC 0-1 (0-5/HPF) Ur Epithelial Cells RARE (NONE-FEW) Urine Bacteria RARE (NEGATIVE) Result Diagrams: 02/05/17 09:41 02/05/17 09:41 Consult PN Assessment/Plan Procedures: Procedures ASSAY OF TROPONIN QUANT (05/22/15) CHEST X-RAY 1 VIEW FRONTAL (05/22/15) CHEST X-RAY 2VW FRONTAL&LATL (12/09/13) COMPLETE CBC W/AUTO DIFF WBC (05/22/15) COMPREHEN METABOLIC PANEL (12/04/16) CT THORAX W/DYE (12/09/13) ELECTROCARDIOGRAM TRACING (05/22/15) EMERGENCY DEPT VISIT (10/04/16) EMERGENCY DEPT VISIT (05/22/15) EMERGENCY DEPT VISIT (12/09/13) GLYCOSYLATED HEMOGLOBIN TEST (12/04/16) HYDRATION IV INFUSION INIT (12/09/13) LIPID PANEL (12/04/16) METABOLIC PANEL TOTAL CA (12/09/13) MICROALBUMIN SEMIQUANT (12/04/16) ROUTINE VENIPUNCTURE (12/04/16) TISSUE EXAM BY PATHOLOGIST (02/15/14) (1) Abscess SNOMED Code(s): 018241293 Code(s): L02.91 - CUTANEOUS ABSCESS, UNSPECIFIED Current Visit: Yes Comment: L gluteal fold (2) Cellulitis SNOMED Code(s): 636674859 Code(s): L03.90 - CELLULITIS, UNSPECIFIED Current Visit: Yes Qualifiers: Site of cellulitis: buttock Qualified Code(s): L03.317 - Cellulitis of buttock Problem List Initiated/Reviewed/Updated: Yes Plan: Patient has cellulitis associated with a 2-3 cm left buttock abscess. I am unable to adequately assess this given the patients extreme pain around the area. He is acutely ill from this condition and the fact that he is (probably) a poorly controlled diabetic with heart disease and undiagnosed COPD complicates things. He is admitted to the hospitalist team. He will need to be resuscitated prior to going to the OR for incision and drainage. I explained the procedure as well as post operative course to the patient. We discussed the risks including bleeding, infection, or damage to surrounding structures to the patient. He was upset that I would be leaving the wound packed open but I explained to him that if I closed the wound it would become re-infected. He verbalized understanding and wishes to proceed. Will recheck labs at 4pm. If patient is better resuscitated and electrolytes are corrected, will take him tonight for surgery.
--- NOTE | 2017-02-05 14:51 | PCM.PREANE ---
Preanesthetic Assessment - Anesthesia/Transfusion/Family Hx Anesthesia History: Prior Anesthesia Without Reaction Family History of Anesthesia Reaction: No Transfusion History: Unknown Intubation History: Unknown - Review of Systems General: No Symptoms Pulmonary: No Symptoms Cardiovascular: No Symptoms Gastrointestinal: No symptoms Neurological: No Symptoms Other: Reports: None - Physical Assessment O2 Sat by Pulse Oximetry: 91 Respiratory Rate: 18 Vital Signs: Last Vital Signs Temp 36.1 C 02/05/17 09:01 Pulse 85 02/05/17 11:26 Resp 18 02/05/17 11:26 BP 98/53 L 02/05/17 11:26 Pulse Ox 91 L 02/05/17 11:26 Height: 1.8 m Weight: 94 kg ASA Class: 3 Mental Status: Alert & Oriented x3 Airway Class: Mallampati = 2 Dentition: Reports: Dentures (upper) Thyro-Mental Finger Breadths: 3 Mouth Opening Finger Breadths: 3 ROM/Head Extension: Full Lungs: Clear to auscultation, Normal respiratory effort Cardiovascular: Regular Rate, Regular Rhythm - Lab Values: Laboratory Last Values WBC 13.77 K/uL (4.0-11.0) H 02/05/17 09:41 RBC 5.70 M/uL (4.50-5.90) 02/05/17 09:41 Hgb 16.8 g/dL (13.0-17.0) 02/05/17 09:41 Hct 48.9 % (38.0-50.0) 02/05/17 09:41 MCV 85.8 fL (80.0-98.0) 02/05/17 09:41 MCH 29.5 pg (27.0-32.0) 02/05/17 09:41 MCHC 34.4 g/dL (31.0-37.0) 02/05/17 09:41 RDW Std Deviation 39.8 fl (28.0-62.0) 02/05/17 09:41 RDW Coeff of Maegan 13 % (11.0-15.0) 02/05/17 09:41 Plt Count 256 K/uL (150-400) 02/05/17 09:41 MPV 11.80 fL (7.40-12.00) 02/05/17 09:41 Neut % (Auto) 76.0 % (48.0-80.0) 02/05/17 09:41 Lymph % (Auto) 12.3 % (16.0-40.0) L 02/05/17 09:41 [place] % (Auto) 10.8 % (0.0-15.0) 02/05/17 09:41 Eos % (Auto) 0.7 % (0.0-7.0) 02/05/17 09:41 Baso % (Auto) 0.2 % (0.0-1.5) 02/05/17 09:41 Neut # (Auto) 10.5 K/uL (1.4-5.7) H 02/05/17 09:41 Lymph # (Auto) 1.7 K/uL (0.6-2.4) 02/05/17 09:41 [place] # (Auto) 1.5 K/uL (0.0-0.8) H 02/05/17 09:41 Eos # (Auto) 0.1 K/uL (0.0-0.7) 02/05/17 09:41 Baso # (Auto) 0.0 K/uL (0.0-0.1) 02/05/17 09:41 INR 0.94 (0.86-1.11) 02/05/17 09:41 ABG pH 7.358 (7.35-7.45) 02/05/17 11:09 ABG pCO2 49 mmHG (35-45) H 02/05/17 11:09 ABG pO2 52 mmHG (75-100) L 02/05/17 11:09 ABG HCO3 28 mEq/L (22-26) H 02/05/17 11:09 ABG Total CO2 24.1 02/05/17 11:09 ABG Base Excess 1.6 (-2.0-2.0) 02/05/17 11:09 Lactate 1.0 mmol/L (0.20-2.00) 02/05/17 11:09 Sodium 128 mmol/L (136-146) L 02/05/17 09:41 Potassium 4.3 mmol/L (3.5-5.1) 02/05/17 09:41 Chloride 94 mmol/L (98-110) L 02/05/17 09:41 Carbon Dioxide 21 mmol/L (21-31) 02/05/17 09:41 BUN 16 mg/dL (6.0-23.0) 02/05/17 09:41 Creatinine 1.5 mg/dL (0.6-1.5) 02/05/17 09:41 Est Cr Clr Drug Dosing 57.17 mL/min 02/05/17 09:41 Estimated GFR (MDRD) 48.1 ml/min 02/05/17 09:41 Glucose 682 mg/dL (60-110) H* 02/05/17 09:41 POC Glucose 164 mg/dL (60-110) H 02/05/17 14:30 Calcium 9.6 mg/dL (8.8-10.8) 02/05/17 09:41 Total Bilirubin 0.8 mg/dL (0.1-1.5) 02/05/17 09:41 AST 20 IU/L (5-40) 02/05/17 09:41 ALT 19 IU/L (8-54) 02/05/17 09:41 Alkaline Phosphatase 142 (40-150) 02/05/17 09:41 Total Protein 7.8 g/dL (6.0-8.0) 02/05/17 09:41 Albumin 3.9 g/dL (3.5-5.0) 02/05/17 09:41 Globulin 3.9 g/dL (2.0-3.5) H 02/05/17 09:41 Albumin/Globulin Ratio 1.0 (1.3-2.8) L 02/05/17 09:41 Urine Color YELLOW 02/05/17 12:15 Urine Appearance CLEAR 02/05/17 12:15 Urine pH 5.0 (5.0-8.0) 02/05/17 12:15 Ur Specific [place] 1.010 (1.001-1.035) 02/05/17 12:15 Urine Protein NEGATIVE mg/dL (NEGATIVE) 02/05/17 12:15 Urine Glucose (UA) >=1000 mg/dL (NEGATIVE) 02/05/17 12:15 Urine Ketones NEGATIVE mg/dL (NEGATIVE) 02/05/17 12:15 Urine Occult Blood TRACE-LYSED (NEGATIVE) 02/05/17 12:15 Urine Nitrite NEGATIVE (NEGATIVE) 02/05/17 12:15 Urine Bilirubin NEGATIVE (NEGATIVE) 02/05/17 12:15 Urine Urobilinogen 0.2 EU/dL (<2.0) 02/05/17 12:15 Ur Leukocyte Esterase NEGATIVE (NEGATIVE) 02/05/17 12:15 Urine RBC 0-1 (0-2/HPF) 02/05/17 12:15 Urine WBC 0-1 (0-5/HPF) 02/05/17 12:15 Ur Epithelial Cells RARE (NONE-FEW) 02/05/17 12:15 Urine Bacteria RARE (NEGATIVE) 02/05/17 12:15 - Allergies Allergies/Adverse Reactions: Allergies Allergy/AdvReac Type Severity Reaction Status Date / Time No Known Allergies Allergy Verified 02/05/17 09:00 - Blood Blood Available: No - Anesthesia Plan Pre-Op Medication Ordered: None - Acknowledgements Anesthesia Type Planned: General Anesthesia Pt an Appropriate Candidate for the Planned Anesthesia: Yes Alternatives and Risks of Anesthesia Discussed w Pt/Guardian: Yes Pt/Guardian Understands and Agrees with Anesthesia Plan: Yes PreAnesthesia Questionnaire - Past Health History Medical/Surgical History: Denies Medical/Surgical History HEENT History: Reports: Impaired Vision Cardiovascular History: Reports: CAD, High Cholesterol, Hypertension, ID, Stents , Other (See Below) (s/p CABG) Respiratory History: Reports: Other (See Below) (History of left posterior thoracotomy due to empyema). Denies: COPD Endocrine/Metabolic History: Reports: Diabetes, Type II - Past Surgical History Cardiovascular Surgical History: Reports: Coronary Artery Bypass, Coronary Artery Stent (x 3 or 4) Respiratory Surgical History: Reports: Other (See Below) (Left posterior thoracotomy for lung decortication and empyema drainage) GI Surgical History: Reports: None Other Musculoskeletal Surgeries/Procedures:: lower back surgery - SUBSTANCE USE Smoking Status *Q: Current Every Day Smoker Tobacco Use Within Last Twelve Months: Cigarettes Second Hand Smoke Exposure: No Days Per Week of Alcohol Use: 0 Recreational Drug Use History: No - HOME MEDS Home Medications: Home Meds Clopidogrel [Plavix] 75 mg PO DAILY 12/09/13 [History] Lisinopril 10 mg PO DAILY 12/09/13 [History] Metoprolol Succinate [Toprol XL] 25 mg PO DAILY 12/09/13 [History] Rosuvastatin [Crestor] 40 mg PO DAILY 12/09/13 [History] metFORMIN [metFORMIN XR] 500 mg PO BIDM 12/09/13 [History] Aspirin 81 mg PO DAILY 05/22/15 [History] Glimepiride 1 mg PO DAILY 05/22/15 [History] Nitroglycerin [Nitrostat] 0.4 mg PO ASDIRECTED 05/22/15 [History] hydrOXYzine HCl [hydrOXYzine] 25 mg PO DAILY 05/22/15 [History] - CURRENT (IN HOUSE) MEDS Current Meds: Current Medications Enoxaparin Sodium (Lovenox) 40 mg SUBCUT Q24H COUNTS INCLUDE 234 BEDS AT THE [facility] Sodium Chloride (Normal Saline) 1,000 mls @ 150 mls/hr IV ASDIRECTED COUNTS INCLUDE 234 BEDS AT THE [facility] Last Admin: 02/05/17 13:05 Dose: 150 mls/hr Vancomycin HCl 1,500 mg/ (Sodium Chloride) 500 mls @ 250 mls/hr IV Q12H [place] Piperacillin Sod/Tazobactam (Sod 3.375 gm/ Sodium Chloride) 50 mls @ 100 mls/ hr IV Q6H COUNTS INCLUDE 234 BEDS AT THE [facility] Last Admin: 02/05/17 13:41 Dose: 100 mls/hr Insulin Aspart (Novolog) 0 unit SUBCUT TIDAC COUNTS INCLUDE 234 BEDS AT THE [facility] PRN Reason: Protocol Last Admin: 02/05/17 12:34 Dose: 8 units Morphine Sulfate (Morphine) 3 mg IVPUSH Q2H PRN PRN Reason: Pain (severe 7-10) Nicotine (Habitrol) 7 mg TRDERM DAILY COUNTS INCLUDE 234 BEDS AT THE [facility] Last Admin: 02/05/17 12:33 Dose: 7 mg Ondansetron HCl (Zofran) 4 mg IVPUSH Q4H PRN PRN Reason: Nausea Oxycodone HCl (Oxycodone) 5 mg PO Q4H PRN PRN Reason: Pain (moderate 4-6) Sodium Chloride (Saline Flush) 10 ml FLUSH ASDIRECTED PRN PRN Reason: Keep Vein Open Sodium Chloride (Saline Flush) 2.5 ml FLUSH ASDIRECTED PRN PRN Reason: Keep Vein Open Vancomycin HCl (Pharmacy To Dose - Vancomycin) 1 dose .XX ASDIRECTED COUNTS INCLUDE 234 BEDS AT THE [facility] Discontinued Medications Bupivacaine HCl (Marcaine 0.5%) Confirm Administered Dose 30 ml .ROUTE .STK-MED ONE Stop: 02/05/17 13:48 Bupivacaine HCl (Sensorcaine-Mpf 0.25%) Confirm Administered Dose 10 ml .ROUTE .STK-MED ONE Stop: 02/05/17 13:48 Enoxaparin Sodium (Lovenox) 40 mg SUBCUT Q24H [place] Last Admin: 02/05/17 13:44 Dose: Not Given Fentanyl (Sublimaze) 50 mcg IVPUSH ONETIME ONE Stop: 02/05/17 09:19 Last Admin: 02/05/17 09:44 Dose: 50 mcg Sodium Chloride (Normal Saline) 1,000 mls @ 999 mls/hr IV STAT ONE Stop: 02/05/17 10:18 Last Admin: 02/05/17 09:43 Dose: 999 mls/hr Vancomycin HCl 1 gm/ Sodium (Chloride) 250 mls @ 250 mls/hr IV ONETIME ONE Stop: 02/05/17 10:17 Last Admin: 02/05/17 09:44 Dose: 250 mls/hr Insulin Human Regular (Novolin R) 10 unit IVPUSH ONETIME ONE PRN Reason: Protocol Stop: 02/05/17 10:30 Last Admin: 02/05/17 11:06 Dose: 10 units Insulin Human Regular (Novolin R) 10 unit SUBCUT ONETIME ONE PRN Reason: Protocol Stop: 02/05/17 10:31 Last Admin: 02/05/17 11:06 Dose: 10 units Iopamidol (Isovue Multipack-370 (76%)) 100 ml IVPUSH ONETIME STA Stop: 02/05/17 09:22 Iopamidol (Isovue-300 (61%)) 60 ml IV ONETIME STA Stop: 02/05/17 10:42 Last Admin: 02/05/17 10:42 Dose: 60 ml Lidocaine/Epinephrine (Xylocaine 1% With Epinephrine 1:100,000) Confirm Administered Dose 20 ml .ROUTE .STK-MED ONE Stop: 02/05/17 13:48 Ondansetron HCl (Zofran) 4 mg IVPUSH ONETIME ONE Stop: 02/05/17 09:19 Last Admin: 02/05/17 09:44 Dose: 4 mg
[2017-02-05] MEDS ORDERED: Sodium Chloride 0.9% 500 ML IV SCH (15:45)
[2017-02-05] MEDS ORDERED: Lidocaine 2% 5 ML SDV ONE (15:49)
[2017-02-05] MEDS ORDERED: Midazolam 1 MG/ML 2 ML SDV ONE (15:49)
[2017-02-05] MEDS ORDERED: fentaNYL 250 MCG/5 ML SDV ONE (15:49)
[2017-02-05] MEDS ORDERED: Propofol 200 MG/20 ML SDV ONE (15:49)
[2017-02-05] MEDS ORDERED: Ondansetron 4 MG/2 ML SDV ONE (15:49)
[2017-02-05] MEDS: Morphine 4 MG/ML Syringe IVPUSH PRN (16:00)
[2017-02-05 16:33] LABS: CHLORIDE,CL 104 mmol/L (98-110); SODIUM,NA 138 mmol/L (136-146)
--- NOTE | 2017-02-05 17:22 | PCM.SN ---
- Free Text/Narrative Note: Given the patients rapid correction of blood sugar and electrolytes and in light of his cardiac history, anesthesia would prefer to perform this case right away in the morning to allow for stabilization and further resuscitation. I explained this to the patient and his . They were in understanding. Patient can eat tonight and we will perform an I and D of left buttock abscess in the morning.
--- NOTE | 2017-02-05 17:41 | CR ---
EXAM DATE: 02/05/17 PATIENT'S AGE: 56 Patient: LOREN DE LA GARZA Facility: [place], [place] Site . Site : 1960 Study: XRay Chest [id number]/5/2017 10:55:19 AM Ordering Physician: Td Marmolejo Final Report: INDICATION: Chest pain, shortness of breath. COMPARISON: Portable chest dated 05/22/2015. TECHNIQUE: Two view chest. FINDINGS: There are stable small calcified granulomas within both lungs. There has been a prior left thoracotomy with resection of the anterior left 8th rib and there are sternal wire retention sutures in place. The heart, mediastinum and pulmonary vessels are of normal size. There is no evidence of pleural fluid. IMPRESSION: No acute cardiopulmonary disease process identified. Dictated by Jalele Garibay MD @ Feb 05 2017 11:09AM (Electronic Signature) Report Signed by Proxy. MAHESH
--- NOTE | 2017-02-05 17:44 | CT ---
EXAM DATE: 02/05/17 PATIENT'S AGE: 56 Patient: LOREN DE LA GARZA Facility: [place], [place] Site . Site : 1960 Study: CT Pelvis [id number]/5/2017 11:13:25 AM Ordering Physician: Td Marmolejo Final Report: Indication: Gluteal fold abscess. Technique: Patient`s scanned in a prone position. A CT volumetric acquisition was performed of the pelvis without IV contrast. A metallic BB was placed on the skin surface overlying the area of concern. Findings: The CT images demonstrate a complex subcutaneous fluid collection underlying the metallic BB. This lies within the subcutaneous tissues and measures approximately 2.5 cm in size. There are no air bubbles within this complex fluid. There is inflammatory stranding within the adjacent fat and there is thickening and edema within the overlying dermis. The ischial rectal fossa fat appears clear and there are no inflammatory changes noted about the rectum. The prostate gland appears normal in size. Urinary bladder appears normal. There is a normal appearance of the visualized small intestine and colon. There is ectasia and atherosclerotic calcification within the abdominal aorta and iliac arteries. There is no evidence of pelvic lymphadenopathy. The bone window images show no evidence of a fracture or destructive change within the coccyx. The sacrum appears intact. There is mild osteoarthritic change within the right sacroiliac joint. The hip joints show mild osteoarthritic change bilaterally. Impression: Subcutaneous abscess noted within the left gluteal fold. No evidence of abscess or inflammation about the rectum or ischial rectal fossa fat. No evidence of osteomyelitis within the coccyx. Please note that all CT scans at this facility use dose modulation, iterative reconstruction, and/or weight-based dosing when appropriate to reduce radiation dose to as low as reasonably achievable. Dictated by Jaleel Garibay MD @ Feb 05 2017 11:38AM (Electronic Signature) Report Signed by Proxy. MAHESH
[2017-02-06] MEDS: Piperacillin/Tazobactam 3.375 GM in Sodium Chloride 0.9% 50 ML IV SCH ×4 (00:02→18:00)
[2017-02-06] MEDS: Sodium Chloride 0.9% 1,000 ML IV SCH ×2 (03:15→17:26)
[2017-02-06 05:38] LABS: CHLORIDE,CL 104 mmol/L (98-110); SODIUM,NA 136 mmol/L (136-146)
[2017-02-06] MEDS: Insulin Aspart 100 Units/ML 3 ML Pen SUBCUT SCH ×3 (05:45→17:29)
[2017-02-06] MEDS ORDERED: Succinylcholine/Normal Saline 200 MG/10 ML Syringe ONE (07:19)
--- NOTE | 2017-02-06 07:34 | PCM.SN ---
- Free Text/Narrative Note: had talk lalah patient and spouse this am , reviewed chart and examined pt. labs : [id number], na 136, k 4.3, cr 0.9. stents 6-8 yr ago. last aspirin and plavix about 3 day ago. upper denture, good airway, nl heart tones and rhythm . plan GET, prone?
--- NOTE | 2017-02-06 07:57 | PCM.OPNOTE ---
- General Post-Op/Procedure Note Date of Surgery/Procedure: 02/06/17 Operative Procedure(s): Incision and drainage of abscess Findings: pilonidal cyst Pre Op Diagnosis: buttocks abscess Post-Op Diagnosis: incision and drainage of pilonidal cyst Anesthesia Technique: General LMA Primary Surgeon: Oumou Arboleda EBL in mLs: 10 Condition: Good Free Text/Narrative:: Intake & Output 02/05/17 02/06/17 02/06/17 22:59 06:59 14:59 Intake Total 2144 2173 Output Total 500 765 Balance 2372 1400
--- NOTE | 2017-02-06 07:59 | PCM.PN ---
- General Info Date of Service: 02/06/17 Admission Dx/Problem (Free Text): Cellulitis with abscess to L buttock Subjective Update: 1050: Patient back from PACU. was unable to see patient prior to leaving for OR. Patient is alert, reports pain is better tolerated. No chest pain or SOB. On NC 2L sating mid 90s. Asking when he can eat. Functional Status: Reports: pain controlled - Review of Systems General: Denies: Fever Pulmonary: Reports: no symptoms. Denies: shortness of breath, cough, sputum Cardiovascular: Reports: No Symptoms. Denies: Chest Pain, Edema Gastrointestinal: Reports: No symptoms. Denies: Abdominal pain, Nausea, Vomiting - Patient Data Vitals - most recent: Last Vital Signs Temp 98.1 F 02/06/17 05:35 Pulse 81 02/06/17 05:35 Resp 20 02/06/17 05:35 BP 121/66 02/06/17 05:35 Pulse Ox 90 L 02/06/17 05:35 Weight - most recent: 94 kg I&O - last 24 hours: Intake & Output 02/05/17 02/06/17 02/06/17 22:59 06:59 14:59 Intake Total 2874 2173 Output Total 500 765 Balance 2374 1408 Lab Results last 24 hrs: Laboratory Results - last 24 hr 02/05/17 02/05/17 02/05/17 Range/Units 12:15 12:32 14:30 WBC (4.0-11.0) K/uL RBC (4.50-5.90) M/uL Hgb (13.0-17.0) g/dL Hct (38.0-50.0) % MCV (80.0-98.0) fL MCH (27.0-32.0) pg MCHC (31.0-37.0) g/dL RDW Std Deviation (28.0-62.0) fl RDW Coeff of Maegan (11.0-15.0) % Plt Count (150-400) K/uL MPV (7.40-12.00) fL Neut % (Auto) (48.0-80.0) % Lymph % (Auto) (16.0-40.0) % Guthrie % (Auto) (0.0-15.0) % Eos % (Auto) (0.0-7.0) % Baso % (Auto) (0.0-1.5) % Neut # (Auto) (1.4-5.7) K/uL Lymph # (Auto) (0.6-2.4) K/uL Guthrie # (Auto) (0.0-0.8) K/uL Eos # (Auto) (0.0-0.7) K/uL Baso # (Auto) (0.0-0.1) K/uL Nucleated RBC % /100WBC Nucleated RBCs # K/uL ABG pH (7.35-7.45) ABG pCO2 (35-45) mmHG ABG pO2 (75-100) mmHG ABG HCO3 (22-26) mEq/L ABG Total CO2 ABG Base Excess (-2.0-2.0) Sodium (136-146) mmol/L Potassium (3.5-5.1) mmol/L Chloride (98-110) mmol/L Carbon Dioxide (21-31) mmol/L BUN (6.0-23.0) mg/dL Creatinine (0.6-1.5) mg/dL Est Cr Clr Drug Dosing mL/min Estimated GFR (MDRD) ml/min Glucose (60-110) mg/dL POC Glucose 322 H 164 H (60-110) mg/dL Calcium (8.8-10.8) mg/dL Urine Color YELLOW Urine Appearance CLEAR Urine pH 5.0 (5.0-8.0) Ur Specific Walton 1.010 (1.001-1.035) Urine Protein NEGATIVE (NEGATIVE) mg/dL Urine Glucose (UA) >=1000 (NEGATIVE) mg/dL Urine Ketones NEGATIVE (NEGATIVE) mg/dL Urine Occult Blood TRACE-LYSED (NEGATIVE) Urine Nitrite NEGATIVE (NEGATIVE) Urine Bilirubin NEGATIVE (NEGATIVE) Urine Urobilinogen 0.2 (<2.0) EU/dL Ur Leukocyte Esterase NEGATIVE (NEGATIVE) Urine RBC 0-1 (0-2/HPF) Urine WBC 0-1 (0-5/HPF) Ur Epithelial Cells RARE (NONE-FEW) Urine Bacteria RARE (NEGATIVE) 02/05/17 02/05/17 02/05/17 Range/Units 16:00 16:20 17:32 WBC (4.0-11.0) K/uL RBC (4.50-5.90) M/uL Hgb (13.0-17.0) g/dL Hct (38.0-50.0) % MCV (80.0-98.0) fL MCH (27.0-32.0) pg MCHC (31.0-37.0) g/dL RDW Std Deviation (28.0-62.0) fl RDW Coeff of Maegan (11.0-15.0) % Plt Count (150-400) K/uL MPV (7.40-12.00) fL Neut % (Auto) (48.0-80.0) % Lymph % (Auto) (16.0-40.0) % Guthrie % (Auto) (0.0-15.0) % Eos % (Auto) (0.0-7.0) % Baso % (Auto) (0.0-1.5) % Neut # (Auto) (1.4-5.7) K/uL Lymph # (Auto) (0.6-2.4) K/uL Guthrie # (Auto) (0.0-0.8) K/uL Eos # (Auto) (0.0-0.7) K/uL Baso # (Auto) (0.0-0.1) K/uL Nucleated RBC % /100WBC Nucleated RBCs # K/uL ABG pH 7.361 (7.35-7.45) ABG pCO2 52 H (35-45) mmHG ABG pO2 43 L (75-100) mmHG ABG HCO3 30 H (22-26) mEq/L ABG Total CO2 25.9 ABG Base Excess 3.4 H (-2.0-2.0) Sodium 138 (136-146) mmol/L Potassium 3.6 (3.5-5.1) mmol/L Chloride 104 (98-110) mmol/L Carbon Dioxide 25 (21-31) mmol/L BUN 13 (6.0-23.0) mg/dL Creatinine 1.0 (0.6-1.5) mg/dL Est Cr Clr Drug Dosing 85.76 mL/min Estimated GFR (MDRD) > 60.0 ml/min Glucose 98 (60-110) mg/dL POC Glucose 108 (60-110) mg/dL Calcium 8.7 L (8.8-10.8) mg/dL Urine Color Urine Appearance Urine pH (5.0-8.0) Ur Specific Walton (1.001-1.035) Urine Protein (NEGATIVE) mg/dL Urine Glucose (UA) (NEGATIVE) mg/dL Urine Ketones (NEGATIVE) mg/dL Urine Occult Blood (NEGATIVE) Urine Nitrite (NEGATIVE) Urine Bilirubin (NEGATIVE) Urine Urobilinogen (<2.0) EU/dL Ur Leukocyte Esterase (NEGATIVE) Urine RBC (0-2/HPF) Urine WBC (0-5/HPF) Ur Epithelial Cells (NONE-FEW) Urine Bacteria (NEGATIVE) 02/05/17 02/06/17 02/06/17 Range/Units 23:53 04:40 04:40 WBC 12.50 H (4.0-11.0) K/uL RBC 5.13 (4.50-5.90) M/uL Hgb 15.0 (13.0-17.0) g/dL Hct 45.8 (38.0-50.0) % MCV 89.3 (80.0-98.0) fL MCH 29.2 (27.0-32.0) pg MCHC 32.8 (31.0-37.0) g/dL RDW Std Deviation 43.1 (28.0-62.0) fl RDW Coeff of Maegan 13 (11.0-15.0) % Plt Count 247 (150-400) K/uL MPV 11.60 (7.40-12.00) fL Neut % (Auto) 71.6 (48.0-80.0) % Lymph % (Auto) 16.2 (16.0-40.0) % Guthrie % (Auto) 10.7 (0.0-15.0) % Eos % (Auto) 1.3 (0.0-7.0) % Baso % (Auto) 0.2 (0.0-1.5) % Neut # (Auto) 8.9 H (1.4-5.7) K/uL Lymph # (Auto) 2.0 (0.6-2.4) K/uL Guthrie # (Auto) 1.3 H (0.0-0.8) K/uL Eos # (Auto) 0.2 (0.0-0.7) K/uL Baso # (Auto) 0.0 (0.0-0.1) K/uL Nucleated RBC % 0.0 /100WBC Nucleated RBCs # 0 K/uL ABG pH (7.35-7.45) ABG pCO2 (35-45) mmHG ABG pO2 (75-100) mmHG ABG HCO3 (22-26) mEq/L ABG Total CO2 ABG Base Excess (-2.0-2.0) Sodium 136 (136-146) mmol/L Potassium 4.3 (3.5-5.1) mmol/L Chloride 104 (98-110) mmol/L Carbon Dioxide 24 (21-31) mmol/L BUN 14 (6.0-23.0) mg/dL Creatinine 0.9 (0.6-1.5) mg/dL Est Cr Clr Drug Dosing 95.29 mL/min Estimated GFR (MDRD) > 60.0 ml/min Glucose 237 H (60-110) mg/dL POC Glucose 245 H (60-110) mg/dL Calcium 8.0 L (8.8-10.8) mg/dL Urine Color Urine Appearance Urine pH (5.0-8.0) Ur Specific Walton (1.001-1.035) Urine Protein (NEGATIVE) mg/dL Urine Glucose (UA) (NEGATIVE) mg/dL Urine Ketones (NEGATIVE) mg/dL Urine Occult Blood (NEGATIVE) Urine Nitrite (NEGATIVE) Urine Bilirubin (NEGATIVE) Urine Urobilinogen (<2.0) EU/dL Ur Leukocyte Esterase (NEGATIVE) Urine RBC (0-2/HPF) Urine WBC (0-5/HPF) Ur Epithelial Cells (NONE-FEW) Urine Bacteria (NEGATIVE) 02/06/17 Range/Units 05:43 WBC (4.0-11.0) K/uL RBC (4.50-5.90) M/uL Hgb (13.0-17.0) g/dL Hct (38.0-50.0) % MCV (80.0-98.0) fL MCH (27.0-32.0) pg MCHC (31.0-37.0) g/dL RDW Std Deviation (28.0-62.0) fl RDW Coeff of Maegan (11.0-15.0) % Plt Count (150-400) K/uL MPV (7.40-12.00) fL Neut % (Auto) (48.0-80.0) % Lymph % (Auto) (16.0-40.0) % Guthrie % (Auto) (0.0-15.0) % Eos % (Auto) (0.0-7.0) % Baso % (Auto) (0.0-1.5) % Neut # (Auto) (1.4-5.7) K/uL Lymph # (Auto) (0.6-2.4) K/uL Guthrie # (Auto) (0.0-0.8) K/uL Eos # (Auto) (0.0-0.7) K/uL Baso # (Auto) (0.0-0.1) K/uL Nucleated RBC % /100WBC Nucleated RBCs # K/uL ABG pH (7.35-7.45) ABG pCO2 (35-45) mmHG ABG pO2 (75-100) mmHG ABG HCO3 (22-26) mEq/L ABG Total CO2 ABG Base Excess (-2.0-2.0) Sodium (136-146) mmol/L Potassium (3.5-5.1) mmol/L Chloride (98-110) mmol/L Carbon Dioxide (21-31) mmol/L BUN (6.0-23.0) mg/dL Creatinine (0.6-1.5) mg/dL Est Cr Clr Drug Dosing mL/min Estimated GFR (MDRD) ml/min Glucose (60-110) mg/dL POC Glucose 242 H (60-110) mg/dL Calcium (8.8-10.8) mg/dL Urine Color Urine Appearance Urine pH (5.0-8.0) Ur Specific Walton (1.001-1.035) Urine Protein (NEGATIVE) mg/dL Urine Glucose (UA) (NEGATIVE) mg/dL Urine Ketones (NEGATIVE) mg/dL Urine Occult Blood (NEGATIVE) Urine Nitrite (NEGATIVE) Urine Bilirubin (NEGATIVE) Urine Urobilinogen (<2.0) EU/dL Ur Leukocyte Esterase (NEGATIVE) Urine RBC (0-2/HPF) Urine WBC (0-5/HPF) Ur Epithelial Cells (NONE-FEW) Urine Bacteria (NEGATIVE) Med Orders - Current: Current Medications Sodium Chloride (Normal Saline) 1,000 mls @ 150 mls/hr IV ASDIRECTED [facility] Last Admin: 02/06/17 03:15 Dose: 150 mls/hr Vancomycin HCl 1,500 mg/ (Sodium Chloride) 500 mls @ 250 mls/hr IV Q12H [facility] Last Admin: 02/05/17 21:25 Dose: 250 mls/hr Piperacillin Sod/Tazobactam (Sod 3.375 gm/ Sodium Chloride) 50 mls @ 100 mls/ hr IV Q6H [facility] Last Admin: 02/06/17 06:40 Dose: 100 mls/hr Sodium Chloride (Normal Saline) 500 mls @ 500 mls/hr IV .BOLUS [facility] Last Admin: 02/05/17 16:04 Dose: 500 mls/hr Insulin Aspart (Novolog) 0 unit SUBCUT Q6HR [place] PRN Reason: Protocol Last Admin: 02/06/17 05:45 Dose: 4 units Insulin Glargine (Lantus Solostar) 15 units SUBCUT BEDTIME [facility] Morphine Sulfate (Morphine) 3 mg IVPUSH Q2H PRN PRN Reason: Pain (severe 7-10) Last Admin: 02/05/17 16:00 Dose: 3 mg Nicotine (Habitrol) 7 mg TRDERM DAILY [facility] Last Admin: 02/05/17 12:33 Dose: 7 mg Ondansetron HCl (Zofran) 4 mg IVPUSH Q4H PRN PRN Reason: Nausea Oxycodone HCl (Oxycodone) 5 mg PO Q4H PRN PRN Reason: Pain (moderate 4-6) Sodium Chloride (Saline Flush) 10 ml FLUSH ASDIRECTED PRN PRN Reason: Keep Vein Open Sodium Chloride (Saline Flush) 2.5 ml FLUSH ASDIRECTED PRN PRN Reason: Keep Vein Open Vancomycin HCl (Pharmacy To Dose - Vancomycin) 1 dose .XX ASDIRECTED [facility] Discontinued Medications Bupivacaine HCl (Marcaine 0.5%) Confirm Administered Dose 30 ml .ROUTE .STK-MED ONE Stop: 02/05/17 13:48 Bupivacaine HCl (Sensorcaine-Mpf 0.25%) Confirm Administered Dose 10 ml .ROUTE .STK-MED ONE Stop: 02/05/17 13:48 Enoxaparin Sodium (Lovenox) 40 mg SUBCUT Q24H [facility] Last Admin: 02/05/17 13:44 Dose: Not Given Enoxaparin Sodium (Lovenox) 40 mg SUBCUT Q24H [place] Fentanyl (Sublimaze) 50 mcg IVPUSH ONETIME ONE Stop: 02/05/17 09:19 Last Admin: 02/05/17 09:44 Dose: 50 mcg Fentanyl (Sublimaze) Confirm Administered Dose 250 mcg .ROUTE .STK-MED ONE Stop: 02/05/17 15:50 Sodium Chloride (Normal Saline) 1,000 mls @ 999 mls/hr IV STAT ONE Stop: 02/05/17 10:18 Last Admin: 02/05/17 09:43 Dose: 999 mls/hr Vancomycin HCl 1 gm/ Sodium (Chloride) 250 mls @ 250 mls/hr IV ONETIME ONE Stop: 02/05/17 10:17 Last Admin: 02/05/17 09:44 Dose: 250 mls/hr Insulin Aspart (Novolog) 0 unit SUBCUT TIDAC [place] PRN Reason: Protocol Last Admin: 02/05/17 17:33 Dose: Not Given Insulin Human Regular (Novolin R) 10 unit IVPUSH ONETIME ONE PRN Reason: Protocol Stop: 02/05/17 10:30 Last Admin: 02/05/17 11:06 Dose: 10 units Insulin Human Regular (Novolin R) 10 unit SUBCUT ONETIME ONE PRN Reason: Protocol Stop: 02/05/17 10:31 Last Admin: 02/05/17 11:06 Dose: 10 units Iopamidol (Isovue Multipack-370 (76%)) 100 ml IVPUSH ONETIME STA Stop: 02/05/17 09:22 Last Admin: 02/05/17 22:36 Dose: Not Given Iopamidol (Isovue-300 (61%)) 60 ml IV ONETIME STA Stop: 02/05/17 10:42 Last Admin: 02/05/17 10:42 Dose: 60 ml Lidocaine (Xylocaine-Mpf 2%) Confirm Administered Dose 5 ml .ROUTE .STK-MED ONE Stop: 02/05/17 15:50 Lidocaine/Epinephrine (Xylocaine 1% With Epinephrine 1:100,000) Confirm Administered Dose 20 ml .ROUTE .STK-MED ONE Stop: 02/05/17 13:48 Midazolam HCl (Versed 1 Mg/Ml) Confirm Administered Dose 2 mg .ROUTE .STK-MED ONE Stop: 02/05/17 15:50 Ondansetron HCl (Zofran) 4 mg IVPUSH ONETIME ONE Stop: 02/05/17 09:19 Last Admin: 02/05/17 09:44 Dose: 4 mg Ondansetron HCl (Zofran) Confirm Administered Dose 4 mg .ROUTE .STK-MED ONE Stop: 02/05/17 15:50 Propofol (Diprivan 20 Ml) Confirm Administered Dose 200 mg .ROUTE .STK-MED ONE Stop: 02/05/17 15:50 Rocuronium [place] (Zemuron) Confirm Administered Dose 50 mg .ROUTE .STK-MED ONE Stop: 02/05/17 15:51 Succinylcholine Chloride (Succinylcholine In Ns Pf) Confirm Administered Dose 200 mg .ROUTE .STK-MED ONE Stop: 02/06/17 07:20 - Exam General: alert, oriented, cooperative Neck: supple Lungs: Normal respiratory effort, Wheezing Cardiovascular: Regular Rate, Regular Rhythm Abdomen: bowel sounds present, soft, no tenderness, no distension Extremities: no edema Wound/Incisions: dressing dry and intact Neurological: no new focal deficit Psy/Mental Status: alert (L buttock), normal affect, normal mood - Problem List & Annotations (1) Abscess SNOMED Code(s): 598421510 Code(s): L02.91 - CUTANEOUS ABSCESS, UNSPECIFIED Status: Acute Current Visit: Yes Annotation/Comment:: L gluteal fold (2) DM type 2 (diabetes mellitus, type 2) SNOMED Code(s): 04167832 Code(s): E11.9 - TYPE 2 DIABETES MELLITUS WITHOUT COMPLICATIONS Status: Chronic Current Visit: Yes Qualifiers: Diabetes mellitus complication status: with hyperglycemia Diabetes mellitus termite technician insulin use: without chcf use Qualified Code(s): E11.65 - Type 2 diabetes mellitus with hyperglycemia (3) CAD (coronary artery disease) SNOMED Code(s): 61987706 Code(s): I25.10 - ATHSCL HEART DISEASE OF [place] CORONARY ARTERY W/O ANG PCTRS Status: Chronic Current Visit: Yes Qualifiers: Coronary Disease-Associated Artery/Lesion type: [place] artery Teller vs. transplanted heart: [place] heart Associated angina: without angina Qualified Code(s): I25.10 - Atherosclerotic heart disease of [place] coronary artery without angina pectoris (4) Hx of myocardial infarction SNOMED Code(s): 143124665 Code(s): I25.2 - OLD MYOCARDIAL INFARCTION Status: Chronic Current Visit : Yes (5) Tobacco abuse SNOMED Code(s): 062534351, 497194771 Code(s): Z72.0 - TOBACCO USE Status: Chronic Current Visit: Yes - Problem List Review Problem List Initiated/Reviewed/Updated: Yes - My Orders Last 24 Hours: My Active Orders 02/05/17 12:05 Intake and Output [RC] Q12H May Shower [RC] ASDIRECTED Oxygen Therapy [RC] PRN Up ad Elo [RC] ASDIRECTED VTE/DVT Education [RC] PER UNIT ROUTINE Vital Signs [RC] Q4H Morphine 3 mg IVPUSH Q2H PRN Ondansetron [Zofran] 4 mg IVPUSH Q4H PRN oxyCODONE 5 mg PO Q4H PRN Resuscitation Status Routine 02/05/17 12:06 Consult to Physician [CONS] Routine 02/05/17 12:08 Notify Provider Consults [RC] ASDIRECTED 02/05/17 12:13 Blood Glucose Check, Bedside [RC] Q6HR 02/05/17 12:15 Nicotine [Habitrol] 7 mg TRDERM DAILY Sodium Chloride 0.9% [Normal Saline] 1,000 ml IV ASDIRECTED Vancomycin Pharmacy to Dose [Pharmacy to Dose - Vancomycin] 1 dose .XX ASDIRECTED 02/05/17 12:32 Communication Order [RC] PRN 02/05/17 12:45 EKG 12 Lead [EKG Documentation Completion] [RC] URGENT 02/05/17 13:00 Piperacillin/Tazobactam [Piperacil-Tazobact] 3.375 gm Sodium Chloride 0.9% [ Normal Saline] 50 ml IV Q6H 02/06/17 21:00 Insulin Glarg,Human.Rec.Analog [LantUS Solostar] 15 units SUBCUT BEDTIME 02/07/17 05:11 BASIC METABOLIC PANEL,BMP [CHEM] AM CBC WITH AUTO DIFF [HEME] AM 02/08/17 05:11 BASIC METABOLIC PANEL,BMP [CHEM] AM CBC WITH AUTO DIFF [HEME] AM 02/09/17 05:11 BASIC METABOLIC PANEL,BMP [CHEM] AM CBC WITH AUTO DIFF [HEME] AM 02/10/17 05:11 BASIC METABOLIC PANEL,BMP [CHEM] AM CBC WITH AUTO DIFF [HEME] AM - Plan Plan:: This 56 year old male admitted for L gluteal fold abscess 1. Cellulitis with abscess: Continue Vancomycin and Zosyn for now until cultures return. OR this morning for I&D, tolerated well. Cultures pending. Leukocytosis slighting improved. 2. Hyperglycemia: ADA diet, Novolog SSI. A1c 13.1, up from 8.9 this spring. Will add Lantus 15 units at bedtime. 3. Hyponatremia: pseudohyponatremia resolved with correctin of glucose. 4. CAD: Continue home medications. 5. COPD: ?? no officialy diagnosis, will recommend PFTs as outpatient. Zhen for now. Will monitor. 40+years of smoking and hx empyema. VTE prophylaxis: Start Lovenox this evening. Dispo: 2-4 days.
[2017-02-06] MEDS ORDERED: ePHEDrine 50 MG/ML SDV ONE (08:00)
[2017-02-06] MEDS ORDERED: Albuterol 6.7 GM Inhaler INH ONE (08:03)
[2017-02-06] MEDS ORDERED: Ipratropium 12.9 GM Inhaler ONE (08:03)
[2017-02-06] MEDS ORDERED: Neostigmine Methylsulfate 1 MG/ML 5 ML Syringe ONE (08:08)
[2017-02-06] MEDS ORDERED: Albuterol/Ipratropium 3.0-0.5 MG/3 ML Neb Soln NEB ONE (08:46)
--- NOTE | 2017-02-06 09:47 | PCM.POSTAN ---
POST ANESTHESIA ASSESSMENT - MENTAL STATUS Mental Status: alert, oriented - RESPIRATORY Respiratory Status: respiratory rate WNL, airway patent, O2 saturation stable - CARDIOVASCULAR CV Status: pulse rate WNL, blood pressure stable - GASTROINTESTINAL GI Status: no symptoms - PAIN Pain Score: 3 - POST OP HYDRATION Hydration Status: adequate & stable - OBSERVATIONS Free Text/Narrative:: supported with bipap in PACU and given duoneb treatment upon arrival to PACU. bipap off now for 15 min, 97% sat on 4 liters NC, alert responsive.
[2017-02-06] MEDS: Nicotine 7 MG/24 Hr Patch TRDERM SCH (10:31)
--- NOTE | 2017-02-06 13:49 | PCM.SURGPN ---
- General Info Date of Service: 02/06/17 Date of Surgery/Procedure: 02/06/17 POD#: 0 Functional Status: Reports: pain controlled, tolerating diet - Review of Systems General: Reports: No Symptoms - Patient Data Vitals - most recent: Last Vital Signs Temp 36.4 C 02/06/17 12:03 Pulse 70 02/06/17 12:03 Resp 14 02/06/17 12:03 BP 120/69 02/06/17 12:03 Pulse Ox 88 L 02/06/17 13:35 Weight - most recent: 94 kg I&O - last 24 hours: Intake & Output 02/05/17 02/06/17 02/06/17 22:59 06:59 14:59 Intake Total 2874 2173 1600 Output Total 500 765 Balance 2374 1408 1600 Lab Results last 24 hrs: Laboratory Results - last 24 hr 02/05/17 02/05/17 02/05/17 Range/Units 14:30 16:00 16:20 WBC (4.0-11.0) K/uL RBC (4.50-5.90) M/uL Hgb (13.0-17.0) g/dL Hct (38.0-50.0) % MCV (80.0-98.0) fL MCH (27.0-32.0) pg MCHC (31.0-37.0) g/dL RDW Std Deviation (28.0-62.0) fl RDW Coeff of [place] (11.0-15.0) % Plt Count (150-400) K/uL MPV (7.40-12.00) fL Neut % (Auto) (48.0-80.0) % Lymph % (Auto) (16.0-40.0) % [place] % (Auto) (0.0-15.0) % Eos % (Auto) (0.0-7.0) % Baso % (Auto) (0.0-1.5) % Neut # (Auto) (1.4-5.7) K/uL Lymph # (Auto) (0.6-2.4) K/uL [place] # (Auto) (0.0-0.8) K/uL Eos # (Auto) (0.0-0.7) K/uL Baso # (Auto) (0.0-0.1) K/uL Nucleated RBC % /100WBC Nucleated RBCs # K/uL ABG pH 7.361 (7.35-7.45) ABG pCO2 52 H (35-45) mmHG ABG pO2 43 L (75-100) mmHG ABG HCO3 30 H (22-26) mEq/L ABG Total CO2 25.9 ABG Base Excess 3.4 H (-2.0-2.0) Sodium 138 (136-146) mmol/L Potassium 3.6 (3.5-5.1) mmol/L Chloride 104 (98-110) mmol/L Carbon Dioxide 25 (21-31) mmol/L BUN 13 (6.0-23.0) mg/dL Creatinine 1.0 (0.6-1.5) mg/dL Est Cr Clr Drug Dosing 85.76 mL/min Estimated GFR (MDRD) > 60.0 ml/min Glucose 98 (60-110) mg/dL POC Glucose 164 H (60-110) mg/dL Calcium 8.7 L (8.8-10.8) mg/dL 02/05/17 02/05/17 02/06/17 Range/Units 17:32 23:53 04:40 WBC 12.50 H (4.0-11.0) K/uL RBC 5.13 (4.50-5.90) M/uL Hgb 15.0 (13.0-17.0) g/dL Hct 45.8 (38.0-50.0) % MCV 89.3 (80.0-98.0) fL MCH 29.2 (27.0-32.0) pg MCHC 32.8 (31.0-37.0) g/dL RDW Std Deviation 43.1 (28.0-62.0) fl RDW Coeff of [place] 13 (11.0-15.0) % Plt Count 247 (150-400) K/uL MPV 11.60 (7.40-12.00) fL Neut % (Auto) 71.6 (48.0-80.0) % Lymph % (Auto) 16.2 (16.0-40.0) % [place] % (Auto) 10.7 (0.0-15.0) % Eos % (Auto) 1.3 (0.0-7.0) % Baso % (Auto) 0.2 (0.0-1.5) % Neut # (Auto) 8.9 H (1.4-5.7) K/uL Lymph # (Auto) 2.0 (0.6-2.4) K/uL [place] # (Auto) 1.3 H (0.0-0.8) K/uL Eos # (Auto) 0.2 (0.0-0.7) K/uL Baso # (Auto) 0.0 (0.0-0.1) K/uL Nucleated RBC % 0.0 /100WBC Nucleated RBCs # 0 K/uL ABG pH (7.35-7.45) ABG pCO2 (35-45) mmHG ABG pO2 (75-100) mmHG ABG HCO3 (22-26) mEq/L ABG Total CO2 ABG Base Excess (-2.0-2.0) Sodium (136-146) mmol/L Potassium (3.5-5.1) mmol/L Chloride (98-110) mmol/L Carbon Dioxide (21-31) mmol/L BUN (6.0-23.0) mg/dL Creatinine (0.6-1.5) mg/dL Est Cr Clr Drug Dosing mL/min Estimated GFR (MDRD) ml/min Glucose (60-110) mg/dL POC Glucose 108 245 H (60-110) mg/dL Calcium (8.8-10.8) mg/dL 02/06/17 02/06/17 02/06/17 Range/Units 04:40 05:43 11:32 WBC (4.0-11.0) K/uL RBC (4.50-5.90) M/uL Hgb (13.0-17.0) g/dL Hct (38.0-50.0) % MCV (80.0-98.0) fL MCH (27.0-32.0) pg MCHC (31.0-37.0) g/dL RDW Std Deviation (28.0-62.0) fl RDW Coeff of [place] (11.0-15.0) % Plt Count (150-400) K/uL MPV (7.40-12.00) fL Neut % (Auto) (48.0-80.0) % Lymph % (Auto) (16.0-40.0) % [place] % (Auto) (0.0-15.0) % Eos % (Auto) (0.0-7.0) % Baso % (Auto) (0.0-1.5) % Neut # (Auto) (1.4-5.7) K/uL Lymph # (Auto) (0.6-2.4) K/uL [place] # (Auto) (0.0-0.8) K/uL Eos # (Auto) (0.0-0.7) K/uL Baso # (Auto) (0.0-0.1) K/uL Nucleated RBC % /100WBC Nucleated RBCs # K/uL ABG pH (7.35-7.45) ABG pCO2 (35-45) mmHG ABG pO2 (75-100) mmHG ABG HCO3 (22-26) mEq/L ABG Total CO2 ABG Base Excess (-2.0-2.0) Sodium 136 (136-146) mmol/L Potassium 4.3 (3.5-5.1) mmol/L Chloride 104 (98-110) mmol/L Carbon Dioxide 24 (21-31) mmol/L BUN 14 (6.0-23.0) mg/dL Creatinine 0.9 (0.6-1.5) mg/dL Est Cr Clr Drug Dosing 95.29 mL/min Estimated GFR (MDRD) > 60.0 ml/min Glucose 237 H (60-110) mg/dL POC Glucose 242 H 243 H (60-110) mg/dL Calcium 8.0 L (8.8-10.8) mg/dL [place] Results last 24 hrs: Microbiology 02/06/17 08:08 Gram Stain - Preliminary Buttock, Left Med Orders - Current: Current Medications Albuterol/Ipratropium (Duoneb 3.0-0.5 Mg/3 Ml) 3 ml NEB Q6HRRT [place] Vancomycin HCl 1,500 mg/ (Sodium Chloride) 500 mls @ 250 mls/hr IV Q12H [place] Last Admin: 02/06/17 10:33 Dose: 250 mls/hr Piperacillin Sod/Tazobactam (Sod 3.375 gm/ Sodium Chloride) 50 mls @ 100 mls/ hr IV Q6H [facility] Last Admin: 02/06/17 12:38 Dose: 100 mls/hr Sodium Chloride (Normal Saline) 500 mls @ 500 mls/hr IV .BOLUS [facility] Last Admin: 02/05/17 16:04 Dose: 500 mls/hr Sodium Chloride (Normal Saline) 1,000 mls @ 100 mls/hr IV ASDIRECTED [facility] Insulin Aspart (Novolog) 0 unit SUBCUT TIDAC [place] PRN Reason: Protocol Last Admin: 02/06/17 11:38 Dose: 4 unit Insulin Glargine (Lantus Solostar) 15 units SUBCUT BEDTIME [place] Morphine Sulfate (Morphine) 3 mg IVPUSH Q2H PRN PRN Reason: Pain (severe 7-10) Last Admin: 02/05/17 16:00 Dose: 3 mg Nicotine (Habitrol) 7 mg TRDERM DAILY [facility] Last Admin: 02/06/17 10:31 Dose: 7 mg Ondansetron HCl (Zofran) 4 mg IVPUSH Q4H PRN PRN Reason: Nausea Oxycodone HCl (Oxycodone) 5 mg PO Q4H PRN PRN Reason: Pain (moderate 4-6) Sodium Chloride (Saline Flush) 10 ml FLUSH ASDIRECTED PRN PRN Reason: Keep Vein Open Sodium Chloride (Saline Flush) 2.5 ml FLUSH ASDIRECTED PRN PRN Reason: Keep Vein Open Vancomycin HCl (Pharmacy To Dose - Vancomycin) 1 dose .XX ASDIRECTED [facility] Discontinued Medications Albuterol (Proventil Hfa) Confirm Administered Dose 6.7 gm INH .STK-MED ONE Stop: 02/06/17 08:04 Albuterol/Ipratropium (Duoneb 3.0-0.5 Mg/3 Ml) 3 ml NEB ONETIME ONE Stop: 02/06/17 08:47 Last Admin: 02/06/17 13:03 Dose: Not Given Bupivacaine HCl (Marcaine 0.5%) Confirm Administered Dose 30 ml .ROUTE .STK-MED ONE Stop: 02/05/17 13:48 Bupivacaine HCl (Sensorcaine-Mpf 0.25%) Confirm Administered Dose 10 ml .ROUTE .STK-MED ONE Stop: 02/05/17 13:48 Enoxaparin Sodium (Lovenox) 40 mg SUBCUT Q24H [facility] Last Admin: 02/05/17 13:44 Dose: Not Given Enoxaparin Sodium (Lovenox) 40 mg SUBCUT Q24H [facility] Ephedrine Sulfate (Ephedrine Sulfate) Confirm Administered Dose 50 mg .ROUTE .STK-MED ONE Stop: 02/06/17 08:01 Fentanyl (Sublimaze) 50 mcg IVPUSH ONETIME ONE Stop: 02/05/17 09:19 Last Admin: 02/05/17 09:44 Dose: 50 mcg Fentanyl (Sublimaze) Confirm Administered Dose 250 mcg .ROUTE .STK-MED ONE Stop: 02/05/17 15:50 Glycopyrrolate () Confirm Administered Dose 1 mg .ROUTE .STK-MED ONE Stop: 02/06/17 08:09 Sodium Chloride (Normal Saline) 1,000 mls @ 999 mls/hr IV STAT ONE Stop: 02/05/17 10:18 Last Admin: 02/05/17 09:43 Dose: 999 mls/hr Vancomycin HCl 1 gm/ Sodium (Chloride) 250 mls @ 250 mls/hr IV ONETIME ONE Stop: 02/05/17 10:17 Last Admin: 02/05/17 09:44 Dose: 250 mls/hr Sodium Chloride (Normal Saline) 1,000 mls @ 150 mls/hr IV ASDIRECTED [facility] Last Admin: 02/06/17 03:15 Dose: 150 mls/hr Insulin Aspart (Novolog) 0 unit SUBCUT TIDAC [facility] PRN Reason: Protocol Last Admin: 02/05/17 17:33 Dose: Not Given Insulin Aspart (Novolog) 0 unit SUBCUT Q6HR [facility] PRN Reason: Protocol Last Admin: 02/06/17 05:45 Dose: 4 units Insulin Human Regular (Novolin R) 10 unit IVPUSH ONETIME ONE PRN Reason: Protocol Stop: 02/05/17 10:30 Last Admin: 02/05/17 11:06 Dose: 10 units Insulin Human Regular (Novolin R) 10 unit SUBCUT ONETIME ONE PRN Reason: Protocol Stop: 02/05/17 10:31 Last Admin: 02/05/17 11:06 Dose: 10 units Iopamidol (Isovue Multipack-370 (76%)) 100 ml IVPUSH ONETIME STA Stop: 02/05/17 09:22 Last Admin: 02/05/17 22:36 Dose: Not Given Iopamidol (Isovue-300 (61%)) 60 ml IV ONETIME STA Stop: 02/05/17 10:42 Last Admin: 02/05/17 10:42 Dose: 60 ml Ipratropium [place] (Atrovent Hfa) Confirm Administered Dose 12.9 gm .ROUTE .STK -MED ONE Stop: 02/06/17 08:04 Lidocaine (Xylocaine-Mpf 2%) Confirm Administered Dose 5 ml .ROUTE .STK-MED ONE Stop: 02/05/17 15:50 Lidocaine/Epinephrine (Xylocaine 1% With Epinephrine 1:100,000) Confirm Administered Dose 20 ml .ROUTE .STK-MED ONE Stop: 02/05/17 13:48 Midazolam HCl (Versed 1 Mg/Ml) Confirm Administered Dose 2 mg .ROUTE .STK-MED ONE Stop: 02/05/17 15:50 Neostigmine Methylsulfate (Neostigmine) Confirm Administered Dose 5 mg .ROUTE .STK-MED ONE Stop: 02/06/17 08:09 Ondansetron HCl (Zofran) 4 mg IVPUSH ONETIME ONE Stop: 02/05/17 09:19 Last Admin: 02/05/17 09:44 Dose: 4 mg Ondansetron HCl (Zofran) Confirm Administered Dose 4 mg .ROUTE .STK-MED ONE Stop: 02/05/17 15:50 Propofol (Diprivan 20 Ml) Confirm Administered Dose 200 mg .ROUTE .STK-MED ONE Stop: 02/05/17 15:50 Rocuronium [place] (Zemuron) Confirm Administered Dose 50 mg .ROUTE .STK-MED ONE Stop: 02/05/17 15:51 Succinylcholine Chloride (Succinylcholine In Ns Pf) Confirm Administered Dose 200 mg .ROUTE .STK-MED ONE Stop: 02/06/17 07:20 - Exam General: alert, oriented Lungs: Normal respiratory effort Cardiovascular: Regular Rate Neurological: no new focal deficit - Problem List & Annotations (1) Cellulitis SNOMED Code(s): 729846177 Code(s): L03.90 - CELLULITIS, UNSPECIFIED Status: Acute Current Visit: Yes Qualifiers: Site of cellulitis: buttock Qualified Code(s): L03.317 - Cellulitis of buttock (2) Pilonidal abscess of hanh cleft SNOMED Code(s): 944884427 Code(s): L05.01 - PILONIDAL CYST WITH ABSCESS Status: Acute Current Visit : Yes (3) COPD (chronic obstructive pulmonary disease) SNOMED Code(s): 93705427 Code(s): J44.9 - CHRONIC OBSTRUCTIVE PULMONARY DISEASE, UNSPECIFIED Status : Acute Current Visit: Yes - Problem List Review Problem List Initiated/Reviewed/Updated: Yes - My Orders Last 24 Hours: Active Orders 24 hr Category Date Time Status BIPAP Adult [RT BiPAP/CPAP] [RC] ASDIRECTED Care 02/06/17 08:45 Active EKG 12 Lead [EKG Documentation Completion] [RC] URGENT Care 02/05/17 12:45 Active IS (RT) [RT Incentive Spirometry] [RC] ASDIRECTED Care 02/06/17 12:03 Active RT Aerosol Therapy [RC] ASDIRECTED Care 02/06/17 08:45 Active RT Aerosol Therapy [RC] ASDIRECTED Care 02/06/17 12:03 Active ADA Diabetic [[place] [employer] Diet] [DIET Diet 02/06/17 Lunch Active ] BASIC METABOLIC PANEL,BMP [CHEM] AM Lab 02/07/17 05:11 Ordered BASIC METABOLIC PANEL,BMP [CHEM] AM Lab 02/08/17 05:11 Ordered BASIC METABOLIC PANEL,BMP [CHEM] AM Lab 02/09/17 05:11 Ordered BASIC METABOLIC PANEL,BMP [CHEM] AM Lab 02/10/17 05:11 Ordered CBC WITH AUTO DIFF [HEME] AM Lab 02/07/17 05:11 Ordered CBC WITH AUTO DIFF [HEME] AM Lab 02/08/17 05:11 Ordered CBC WITH AUTO DIFF [HEME] AM Lab 02/09/17 05:11 Ordered CBC WITH AUTO DIFF [HEME] AM Lab 02/10/17 05:11 Ordered CULTURE ANAEROBIC [RM] Routine Lab 02/06/17 08:08 Results CULTURE WOUND [RM] Routine Lab 02/06/17 08:08 Results GRAM STAIN [RM] Routine Lab 02/06/17 08:08 Results VANCOMYCIN TROUGH [CHEM] Routine Lab 02/07/17 08:00 Ordered Albuterol/Ipratropium [DuoNeb 3.0-0.5 MG/3 ML] Med 02/06/17 18:00 Active 3 ml NEB Q6HRRT Insulin Aspart [NovoLOG] Med 02/06/17 11:30 Active See Protocol SUBCUT TIDAC Insulin Glarg,Human.Rec.Analog [LantUS Solostar] Med 02/06/17 21:00 Active 15 units SUBCUT BEDTIME Piperacillin/Tazobactam [Piperacil-Tazobact] 3.375 gm Med 02/05/17 13:00 Active Sodium Chloride 0.9% [Normal Saline] 50 ml IV Q6H Sodium Chloride 0.9% [Normal Saline] 1,000 ml Med 02/06/17 08:00 Active IV ASDIRECTED Sodium Chloride 0.9% [Normal Saline] 500 ml Med 02/05/17 15:45 Active IV .BOLUS Vancomycin 1,500 mg Med 02/05/17 21:00 Active Sodium Chloride 0.9% [Normal Saline] 500 ml IV Q12H Medication Orders Albuterol/Ipratropium (Duoneb 3.0-0.5 Mg/3 Ml) 3 ml NEB Q6HRRT [place] Vancomycin HCl 1,500 mg/ (Sodium Chloride) 500 mls @ 250 mls/hr IV Q12H [facility] Last Admin: 02/06/17 10:33 Dose: 250 mls/hr Infusion: 02/05/17 23:25 Dose: 250 mls/hr Admin: 02/05/17 21:25 Dose: 250 mls/hr Piperacillin Sod/Tazobactam (Sod 3.375 gm/ Sodium Chloride) 50 mls @ 100 mls/ hr IV Q6H [facility] Last Admin: 02/06/17 12:38 Dose: 100 mls/hr Infusion: 02/06/17 07:10 Dose: 100 mls/hr Admin: 02/06/17 06:40 Dose: 100 mls/hr Infusion: 02/06/17 00:32 Dose: 100 mls/hr Admin: 02/06/17 00:02 Dose: 100 mls/hr Infusion: 02/05/17 18:41 Dose: 100 mls/hr Admin: 02/05/17 18:11 Dose: 100 mls/hr Infusion: 02/05/17 14:11 Dose: 100 mls/hr Admin: 02/05/17 13:41 Dose: 100 mls/hr Sodium Chloride (Normal Saline) 500 mls @ 500 mls/hr IV .BOLUS [facility] Last Admin: 02/05/17 16:04 Dose: 500 mls/hr Sodium Chloride (Normal Saline) 1,000 mls @ 100 mls/hr IV ASDIRECTED [facility] Insulin Aspart (Novolog) 0 unit SUBCUT TIDAC [place] PRN Reason: Protocol Last Admin: 02/06/17 11:38 Dose: 4 unit Insulin Glargine (Lantus Solostar) 15 units SUBCUT BEDTIME [facility] Morphine Sulfate (Morphine) 3 mg IVPUSH Q2H PRN PRN Reason: Pain (severe 7-10) Last Admin: 02/05/17 16:00 Dose: 3 mg Nicotine (Habitrol) 7 mg TRDERM DAILY [facility] Last Admin: 02/06/17 10:31 Dose: 7 mg Admin: 02/05/17 12:33 Dose: 7 mg Ondansetron HCl (Zofran) 4 mg IVPUSH Q4H PRN PRN Reason: Nausea Oxycodone HCl (Oxycodone) 5 mg PO Q4H PRN PRN Reason: Pain (moderate 4-6) Sodium Chloride (Saline Flush) 10 ml FLUSH ASDIRECTED PRN PRN Reason: Keep Vein Open Sodium Chloride (Saline Flush) 2.5 ml FLUSH ASDIRECTED PRN PRN Reason: Keep Vein Open Vancomycin HCl (Pharmacy To Dose - Vancomycin) 1 dose .XX ASDIRECTED [facility] - Plan Plan (Free Text/Narrative):: Patient doing well after surgery. Microbiology results are pending. I explained to the patient that post-operatively he did not do well from a respiratory standpoint. He appears to have moderate to severe COPD given his pulmonary status during the case and need for BIPAP post operatively. I explained to him the pathophysiology of pilonidal disease. He will need further surgery to prevent this from re-occuring but given his other medical issues I would not perform this anytime soon. I explained that his healing is going to be slow with this given his smoking and poorly controlled diabetes. I was le with him about the seriousness of his medical situation. He will need to be well controlled from a cardiopulmonary and diabetic standpoint before I would consider any elective surgery on him here. I will perform the first dressing change tomorrow. He will need daily wet to dry dressing changes and be off work ([employer]) for two weeks.
[2017-02-06] MEDS: Enoxaparin 40 MG/0.4 ML Syringe SUBCUT SCH (15:21)
[2017-02-06] MEDS: Albuterol/Ipratropium 3.0-0.5 MG/3 ML Neb Soln NEB SCH ×2 (18:10→23:37)
[2017-02-06] MEDS: Insulin Glargine,Human Rec. Analog 100 Units/ML 3 ML Pen SUBCUT SCH (20:34)
[2017-02-07] MEDS: Piperacillin/Tazobactam 3.375 GM in Sodium Chloride 0.9% 50 ML IV SCH ×4 (00:09→18:16)
[2017-02-07] MEDS: Albuterol/Ipratropium 3.0-0.5 MG/3 ML Neb Soln NEB SCH ×3 (06:10→17:52)
[2017-02-07] MEDS: Sodium Chloride 0.9% 1,000 ML IV SCH (06:44)
[2017-02-07] MEDS: Insulin Aspart 100 Units/ML 3 ML Pen SUBCUT SCH ×3 (07:23→16:43)
[2017-02-07] MEDS: Lisinopril 10 MG Tab PO SCH (08:36)
[2017-02-07] MEDS: Metoprolol Succinate 25 MG Tab.ER PO SCH (08:37)
[2017-02-07] MEDS: Nicotine 7 MG/24 Hr Patch TRDERM SCH (08:37)
[2017-02-07 08:54] LABS: CHLORIDE,CL 103 mmol/L (98-110); SODIUM,NA 135 mmol/L (136-146)
[2017-02-07] MEDS: Morphine 4 MG/ML Syringe IVPUSH PRN (09:35)
--- NOTE | 2017-02-07 11:45 | PCM.PN ---
- General Info Date of Service: 02/07/17 Admission Dx/Problem (Free Text): Cellulitis with abscess to L buttock Subjective Update: Patient alert and oriented this morning, has some pain to buttock, but this is improving. Denies chest pain or palpitations and no SOB. Functional Status: Reports: pain controlled, tolerating diet, ambulating, urinating - Review of Systems General: Denies: Fever, Fatigue HEENT: Reports: no symptoms Pulmonary: Reports: no symptoms. Denies: shortness of breath Cardiovascular: Reports: No Symptoms. Denies: Chest Pain Gastrointestinal: Reports: No symptoms. Denies: Abdominal pain, Nausea, Vomiting Genitourinary: Reports: no symptoms Musculoskeletal: Reports: no symptoms Skin: Reports: other (pain to buttock abscess) Neurological: Reports: No Symptoms Psychiatric: Reports: no symptoms - Patient Data Vitals - most recent: Last Vital Signs Temp 98.0 F 02/07/17 11:31 Pulse 94 02/07/17 11:31 Resp 20 02/07/17 11:31 BP 129/78 02/07/17 11:31 Pulse Ox 94 L 02/07/17 11:31 Weight - most recent: 94 kg I&O - last 24 hours: Intake & Output 02/06/17 02/07/17 02/07/17 22:59 06:59 14:59 Intake Total 2668 1550 960 Output Total 950 1430 Balance 1718 120 960 Lab Results last 24 hrs: Laboratory Results - last 24 hr 02/06/17 02/06/17 02/07/17 Range/Units 16:45 20:11 06:20 WBC (4.0-11.0) K/uL RBC (4.50-5.90) M/uL Hgb (13.0-17.0) g/dL Hct (38.0-50.0) % MCV (80.0-98.0) fL MCH (27.0-32.0) pg MCHC (31.0-37.0) g/dL RDW Std Deviation (28.0-62.0) fl RDW Coeff of Maegan (11.0-15.0) % Plt Count (150-400) K/uL MPV (7.40-12.00) fL Neut % (Auto) (48.0-80.0) % Lymph % (Auto) (16.0-40.0) % Rock % (Auto) (0.0-15.0) % Eos % (Auto) (0.0-7.0) % Baso % (Auto) (0.0-1.5) % Neut # (Auto) (1.4-5.7) K/uL Lymph # (Auto) (0.6-2.4) K/uL Rock # (Auto) (0.0-0.8) K/uL Eos # (Auto) (0.0-0.7) K/uL Baso # (Auto) (0.0-0.1) K/uL Nucleated RBC % /100WBC Nucleated RBCs # K/uL Sodium (136-146) mmol/L Potassium (3.5-5.1) mmol/L Chloride (98-110) mmol/L Carbon Dioxide (21-31) mmol/L BUN (6.0-23.0) mg/dL Creatinine (0.6-1.5) mg/dL Est Cr Clr Drug Dosing mL/min Estimated GFR (MDRD) ml/min Glucose (60-110) mg/dL POC Glucose 273 H 243 H 186 H (60-110) mg/dL Calcium (8.8-10.8) mg/dL Vancomycin Trough (5-15) ug/mL 02/07/17 02/07/17 02/07/17 Range/Units 08:21 08:21 08:21 WBC 10.26 (4.0-11.0) K/uL RBC 4.75 (4.50-5.90) M/uL Hgb 13.9 (13.0-17.0) g/dL Hct 43.3 (38.0-50.0) % MCV 91.2 (80.0-98.0) fL MCH 29.3 (27.0-32.0) pg MCHC 32.1 (31.0-37.0) g/dL RDW Std Deviation 43.8 (28.0-62.0) fl RDW Coeff of Maegan 13 (11.0-15.0) % Plt Count 223 (150-400) K/uL MPV 11.40 (7.40-12.00) fL Neut % (Auto) 73.0 (48.0-80.0) % Lymph % (Auto) 15.4 L (16.0-40.0) % Rock % (Auto) 10.7 (0.0-15.0) % Eos % (Auto) 0.7 (0.0-7.0) % Baso % (Auto) 0.2 (0.0-1.5) % Neut # (Auto) 7.5 H (1.4-5.7) K/uL Lymph # (Auto) 1.6 (0.6-2.4) K/uL Rock # (Auto) 1.1 H (0.0-0.8) K/uL Eos # (Auto) 0.1 (0.0-0.7) K/uL Baso # (Auto) 0.0 (0.0-0.1) K/uL Nucleated RBC % 0.0 /100WBC Nucleated RBCs # 0 K/uL Sodium 135 L (136-146) mmol/L Potassium 3.8 (3.5-5.1) mmol/L Chloride 103 (98-110) mmol/L Carbon Dioxide 26 (21-31) mmol/L BUN 11 (6.0-23.0) mg/dL Creatinine 0.9 (0.6-1.5) mg/dL Est Cr Clr Drug Dosing 95.29 mL/min Estimated GFR (MDRD) > 60.0 ml/min Glucose 274 H (60-110) mg/dL POC Glucose (60-110) mg/dL Calcium 7.9 L (8.8-10.8) mg/dL Vancomycin Trough 9.6 (5-15) ug/mL 02/07/17 Range/Units 11:19 WBC (4.0-11.0) K/uL RBC (4.50-5.90) M/uL Hgb (13.0-17.0) g/dL Hct (38.0-50.0) % MCV (80.0-98.0) fL MCH (27.0-32.0) pg MCHC (31.0-37.0) g/dL RDW Std Deviation (28.0-62.0) fl RDW Coeff of Maegan (11.0-15.0) % Plt Count (150-400) K/uL MPV (7.40-12.00) fL Neut % (Auto) (48.0-80.0) % Lymph % (Auto) (16.0-40.0) % Rock % (Auto) (0.0-15.0) % Eos % (Auto) (0.0-7.0) % Baso % (Auto) (0.0-1.5) % Neut # (Auto) (1.4-5.7) K/uL Lymph # (Auto) (0.6-2.4) K/uL Rock # (Auto) (0.0-0.8) K/uL Eos # (Auto) (0.0-0.7) K/uL Baso # (Auto) (0.0-0.1) K/uL Nucleated RBC % /100WBC Nucleated RBCs # K/uL Sodium (136-146) mmol/L Potassium (3.5-5.1) mmol/L Chloride (98-110) mmol/L Carbon Dioxide (21-31) mmol/L BUN (6.0-23.0) mg/dL Creatinine (0.6-1.5) mg/dL Est Cr Clr Drug Dosing mL/min Estimated GFR (MDRD) ml/min Glucose (60-110) mg/dL POC Glucose 221 H (60-110) mg/dL Calcium (8.8-10.8) mg/dL Vancomycin Trough (5-15) ug/mL [place] Results last 24 hrs: Microbiology 02/06/17 08:08 Gram Stain - Preliminary Buttock, Left Med Orders - Current: Current Medications Albuterol/Ipratropium (Duoneb 3.0-0.5 Mg/3 Ml) 3 ml NEB Q6HRRT [facility] Last Admin: 02/07/17 11:41 Dose: 3 ml Enoxaparin Sodium (Lovenox) 40 mg SUBCUT Q24H [facility] Last Admin: 02/06/17 15:21 Dose: 40 mg Vancomycin HCl 1,500 mg/ (Sodium Chloride) 500 mls @ 250 mls/hr IV Q12H [facility] Last Admin: 02/07/17 09:25 Dose: 250 mls/hr Piperacillin Sod/Tazobactam (Sod 3.375 gm/ Sodium Chloride) 50 mls @ 100 mls/ hr IV Q6H [facility] Last Infusion: 07/07/17 06:43 Dose: 100 mls/hr Sodium Chloride (Normal Saline) 500 mls @ 500 mls/hr IV .BOLUS [facility] Last Admin: 02/05/17 16:04 Dose: 500 mls/hr Insulin Aspart (Novolog) 0 unit SUBCUT TIDAC [facility] PRN Reason: Protocol Last Admin: 02/07/17 07:23 Dose: 2 unit Insulin Glargine (Lantus Solostar) 15 units SUBCUT BEDTIME [facility] Last Admin: 02/06/17 20:34 Dose: 15 units Lisinopril (Prinivil) 10 mg PO DAILY [facility] Last Admin: 02/07/17 08:36 Dose: 10 mg Metoprolol Succinate (Toprol Xl) 25 mg PO DAILY [facility] Last Admin: 02/07/17 08:37 Dose: 25 mg Morphine Sulfate (Morphine) 3 mg IVPUSH Q2H PRN PRN Reason: Pain (severe 7-10) Last Admin: 02/07/17 09:35 Dose: 3 mg Nicotine (Habitrol) 7 mg TRDERM DAILY [facility] Last Admin: 02/07/17 08:37 Dose: 7 mg Ondansetron HCl (Zofran) 4 mg IVPUSH Q4H PRN PRN Reason: Nausea Oxycodone HCl (Oxycodone) 5 mg PO Q4H PRN PRN Reason: Pain (moderate 4-6) Last Admin: 02/06/17 15:44 Dose: 5 mg Rosuvastatin Calcium (Crestor) 40 mg PO BEDTIME [facility] Sodium Chloride (Saline Flush) 10 ml FLUSH ASDIRECTED PRN PRN Reason: Keep Vein Open Sodium Chloride (Saline Flush) 2.5 ml FLUSH ASDIRECTED PRN PRN Reason: Keep Vein Open Vancomycin HCl (Pharmacy To Dose - Vancomycin) 1 dose .XX ASDIRECTED [facility] Discontinued Medications Albuterol (Proventil Hfa) Confirm Administered Dose 6.7 gm INH .STK-MED ONE Stop: 02/06/17 08:04 Albuterol/Ipratropium (Duoneb 3.0-0.5 Mg/3 Ml) 3 ml NEB ONETIME ONE Stop: 02/06/17 08:47 Last Admin: 02/06/17 13:03 Dose: Not Given Bupivacaine HCl (Marcaine 0.5%) Confirm Administered Dose 30 ml .ROUTE .STK-MED ONE Stop: 02/05/17 13:48 Bupivacaine HCl (Sensorcaine-Mpf 0.25%) Confirm Administered Dose 10 ml .ROUTE .STK-MED ONE Stop: 02/05/17 13:48 Enoxaparin Sodium (Lovenox) 40 mg SUBCUT Q24H [facility] Last Admin: 02/05/17 13:44 Dose: Not Given Enoxaparin Sodium (Lovenox) 40 mg SUBCUT Q24H [facility] Ephedrine Sulfate (Ephedrine Sulfate) Confirm Administered Dose 50 mg .ROUTE .STK-MED ONE Stop: 02/06/17 08:01 Fentanyl (Sublimaze) 50 mcg IVPUSH ONETIME ONE Stop: 02/05/17 09:19 Last Admin: 02/05/17 09:44 Dose: 50 mcg Fentanyl (Sublimaze) Confirm Administered Dose 250 mcg .ROUTE .STK-MED ONE Stop: 02/05/17 15:50 Glycopyrrolate () Confirm Administered Dose 1 mg .ROUTE .STK-MED ONE Stop: 02/06/17 08:09 Sodium Chloride (Normal Saline) 1,000 mls @ 999 mls/hr IV STAT ONE Stop: 02/05/17 10:18 Last Admin: 02/05/17 09:43 Dose: 999 mls/hr Vancomycin HCl 1 gm/ Sodium (Chloride) 250 mls @ 250 mls/hr IV ONETIME ONE Stop: 02/05/17 10:17 Last Admin: 02/05/17 09:44 Dose: 250 mls/hr Sodium Chloride (Normal Saline) 1,000 mls @ 150 mls/hr IV ASDIRECTED [facility] Last Admin: 02/06/17 03:15 Dose: 150 mls/hr Sodium Chloride (Normal Saline) 1,000 mls @ 100 mls/hr IV ASDIRECTED [facility] Last Admin: 02/07/17 06:44 Dose: 100 mls/hr Insulin Aspart (Novolog) 0 unit SUBCUT TIDAC [facility] PRN Reason: Protocol Last Admin: 02/05/17 17:33 Dose: Not Given Insulin Aspart (Novolog) 0 unit SUBCUT Q6HR [facility] PRN Reason: Protocol Last Admin: 02/06/17 05:45 Dose: 4 units Insulin Human Regular (Novolin R) 10 unit IVPUSH ONETIME ONE PRN Reason: Protocol Stop: 02/05/17 10:30 Last Admin: 02/05/17 11:06 Dose: 10 units Insulin Human Regular (Novolin R) 10 unit SUBCUT ONETIME ONE PRN Reason: Protocol Stop: 02/05/17 10:31 Last Admin: 02/05/17 11:06 Dose: 10 units Iopamidol (Isovue Multipack-370 (76%)) 100 ml IVPUSH ONETIME STA Stop: 02/05/17 09:22 Last Admin: 02/05/17 22:36 Dose: Not Given Iopamidol (Isovue-300 (61%)) 60 ml IV ONETIME STA Stop: 02/05/17 10:42 Last Admin: 02/05/17 10:42 Dose: 60 ml Ipratropium Custar (Atrovent Hfa) Confirm Administered Dose 12.9 gm .ROUTE .STK -MED ONE Stop: 02/06/17 08:04 Lidocaine (Xylocaine-Mpf 2%) Confirm Administered Dose 5 ml .ROUTE .STK-MED ONE Stop: 02/05/17 15:50 Lidocaine/Epinephrine (Xylocaine 1% With Epinephrine 1:100,000) Confirm Administered Dose 20 ml .ROUTE .STK-MED ONE Stop: 02/05/17 13:48 Midazolam HCl (Versed 1 Mg/Ml) Confirm Administered Dose 2 mg .ROUTE .STK-MED ONE Stop: 02/05/17 15:50 Neostigmine Methylsulfate (Neostigmine) Confirm Administered Dose 5 mg .ROUTE .STK-MED ONE Stop: 02/06/17 08:09 Ondansetron HCl (Zofran) 4 mg IVPUSH ONETIME ONE Stop: 02/05/17 09:19 Last Admin: 02/05/17 09:44 Dose: 4 mg Ondansetron HCl (Zofran) Confirm Administered Dose 4 mg .ROUTE .STK-MED ONE Stop: 02/05/17 15:50 Propofol (Diprivan 20 Ml) Confirm Administered Dose 200 mg .ROUTE .STK-MED ONE Stop: 02/05/17 15:50 Rocuronium Custar (Zemuron) Confirm Administered Dose 50 mg .ROUTE .STK-MED ONE Stop: 02/05/17 15:51 Succinylcholine Chloride (Succinylcholine In Ns Pf) Confirm Administered Dose 200 mg .ROUTE .STK-MED ONE Stop: 02/06/17 07:20 - Exam Quality Assessment: DVT prophylaxis. No: supplemental oxygen General: alert, oriented, cooperative, no acute distress Neck: supple Lungs: Clear to auscultation, Normal respiratory effort Cardiovascular: Regular Rate, Regular Rhythm, No Murmurs Abdomen: bowel sounds present, soft, no tenderness, no distension Extremities: no edema, normal pulses Wound/Incisions: healing well, drainage (serousang drainage, dressing intact, Dr. Arboleda to change later today. Erythema and induration much improved. ), erythema improving Psy/Mental Status: alert, normal affect, normal mood - Problem List & Annotations (1) DM type 2 (diabetes mellitus, type 2) SNOMED Code(s): 35112043 Code(s): E11.9 - TYPE 2 DIABETES MELLITUS WITHOUT COMPLICATIONS Status: Chronic Current Visit: Yes Qualifiers: Diabetes mellitus complication status: with hyperglycemia Diabetes mellitus intermediate designer insulin use: without fci use Qualified Code(s): E11.65 - Type 2 diabetes mellitus with hyperglycemia (2) CAD (coronary artery disease) SNOMED Code(s): 83770538 Code(s): I25.10 - ATHSCL HEART DISEASE OF [place] CORONARY ARTERY W/O ANG PCTRS Status: Chronic Current Visit: Yes Qualifiers: Coronary Disease-Associated Artery/Lesion type: [place] artery [place] vs. transplanted heart: [place] heart Associated angina: without angina Qualified Code(s): I25.10 - Atherosclerotic heart disease of [place] coronary artery without angina pectoris (3) Hx of myocardial infarction SNOMED Code(s): 362545043 Code(s): I25.2 - OLD MYOCARDIAL INFARCTION Status: Chronic Current Visit : Yes (4) Tobacco abuse SNOMED Code(s): 870667013, 269736288 Code(s): Z72.0 - TOBACCO USE Status: Chronic Current Visit: Yes - Problem List Review Problem List Initiated/Reviewed/Updated: Yes - My Orders Last 24 Hours: My Active Orders 02/06/17 11:30 Insulin Aspart [NovoLOG] See Protocol SUBCUT TIDAC 02/06/17 12:03 IS (RT) [RT Incentive Spirometry] [RC] ASDIRECTED RT Aerosol Therapy [RC] ASDIRECTED 02/06/17 16:00 Enoxaparin [Lovenox] 40 mg SUBCUT Q24H 02/06/17 18:00 Albuterol/Ipratropium [DuoNeb 3.0-0.5 MG/3 ML] 3 ml NEB Q6HRRT 02/06/17 21:00 Insulin Glarg,Human.Rec.Analog [LantUS Solostar] 15 units SUBCUT BEDTIME 02/06/17 Lunch ADA Diabetic [[place] [employer] Diet] [DIET] 02/07/17 09:00 Lisinopril [Prinivil] 10 mg PO DAILY Metoprolol Succinate [Toprol XL] 25 mg PO DAILY 02/07/17 21:00 Rosuvastatin [Crestor] 40 mg PO BEDTIME 02/08/17 05:11 BASIC METABOLIC PANEL,BMP [CHEM] AM CBC WITH AUTO DIFF [HEME] AM 02/09/17 05:11 BASIC METABOLIC PANEL,BMP [CHEM] AM CBC WITH AUTO DIFF [HEME] AM 02/10/17 05:11 BASIC METABOLIC PANEL,BMP [CHEM] AM CBC WITH AUTO DIFF [HEME] AM - Plan Plan:: This 56 year old male admitted for L gluteal fold abscess 1. Cellulitis with abscess: Continue Vancomycin and Zosyn for now until cultures return. OR yesterday I&D, tolerated well. Cultures pending. Leukocytosis improved. Would discharge once cultures return. Dressing changes per Dr. Arboleda instructions. 2. Hyperglycemia: ADA diet, Novolog SSI. A1c 13.1, up from 8.9 this spring.Continue Lantus 15 units at bedtime, DM educator Insulin new for home use. 3. CAD: Continue home medications. 4. COPD: ?? no official diagnosis, will recommend PFTs as outpatient. Duonebs for now. Will monitor. 40+years of smoking and hx empyema. VTE prophylaxis: Lovenox Dispo: 1-2 days, pending cultures
--- NOTE | 2017-02-07 11:54 | OR ---
SURGEON: OLGA CANO MD DATE OF PROCEDURE: 02/06/2017 PREOPERATIVE DIAGNOSIS: Left buttock abscess. POSTOPERATIVE DIAGNOSIS: Pilonidal cyst with associated abscess. PROCEDURE PERFORMED: Incision and drainage of pilonidal cyst. OUTPATIENT SERVICES DIRECTOR: Dr. Carlin Keller, resident services coordinator. ESTIMATED BLOOD LOSS: 10 mL. PATHOLOGY: Anaerobic, aerobic, and Gram stain cultures sent. FLUIDS: See anesthesia record. COMPLICATIONS: None. INDICATIONS: The patient is a 56-year-old male with poorly-controlled diabetes, history of coronary artery disease and COPD who presents with a 1-week history of an increasingly painful erythematous and tender mass along the left buttock. Upon inspection, the area was exquisitely tender and difficult to examine. However, I was able to locate a fluctuant mass on the left buttock. The decision was made to proceed to the operating room for an incision and drainage of this abscess. The patient and I discussed the procedure as well as risks including bleeding or infection or damage to surrounding structures. The patient verbalized understanding and wishes to proceed. PROCEDURE IN DETAIL: The patient was brought to the operating room and a time-out was completed verifying the patient's name, age, date of , allergies, and procedure to be performed. General LMA was then induced. The patient was placed in a prone alisha-knife position and the buttocks area was prepped and draped in the usual standard fashion. Upon inspection I could see multiple scars along the hanh cleft consistent with pilonidal disease. There were several midline pits as well. The abscess itself was just left of midline. I anesthetized the area over this with 1% lidocaine plain. Upon injecting the anesthetic, a pus began to drain from one of the midline pits verifying again that this was pilonidal disease. A 4-cm incision was made over the area of maximal fluctuance and a large amount of purulent material was expressed from the wound. Cultures were taken of this and sent to Pathology. I then used an 11 blade to convert my incision to an elliptical incision. This would allow adequate drainage and proper healing of the abscess cavity itself. The abscess cavity was then debrided with a curette and copiously irrigated with normal saline. The wound was then packed with saline-soaked gauze and dry fluffs were placed over the top. These were then secured in place with mesh underwear. The patient tolerated the procedure well and was then extubated and taken to the PACU. In the PACU, the patient had to be placed on BiPAP due to the severity of his COPD. The patient did well overall with no acute complications. All counts were complete and correct at the end of the case. SOSA AGUIAR /[id number]
--- NOTE | 2017-02-07 11:56 | PCM.SURGPN ---
- General Info Date of Service: 02/07/17 POD#: 1 Functional Status: Reports: pain controlled, tolerating diet, ambulating - Review of Systems General: Reports: No Symptoms Gastrointestinal: Reports: No symptoms - Patient Data Vitals - most recent: Last Vital Signs Temp 36.7 C 02/07/17 11:31 Pulse 94 02/07/17 11:31 Resp 20 02/07/17 11:31 BP 129/78 02/07/17 11:31 Pulse Ox 94 L 02/07/17 11:31 Weight - most recent: 94 kg I&O - last 24 hours: Intake & Output 02/06/17 02/07/17 02/07/17 22:59 06:59 14:59 Intake Total 2668 1550 960 Output Total 950 1430 Balance 1718 120 960 Lab Results last 24 hrs: Laboratory Results - last 24 hr 02/06/17 02/06/17 02/07/17 Range/Units 16:45 20:11 06:20 WBC (4.0-11.0) K/uL RBC (4.50-5.90) M/uL Hgb (13.0-17.0) g/dL Hct (38.0-50.0) % MCV (80.0-98.0) fL MCH (27.0-32.0) pg MCHC (31.0-37.0) g/dL RDW Std Deviation (28.0-62.0) fl RDW Coeff of Maegan (11.0-15.0) % Plt Count (150-400) K/uL MPV (7.40-12.00) fL Neut % (Auto) (48.0-80.0) % Lymph % (Auto) (16.0-40.0) % [place] % (Auto) (0.0-15.0) % Eos % (Auto) (0.0-7.0) % Baso % (Auto) (0.0-1.5) % Neut # (Auto) (1.4-5.7) K/uL Lymph # (Auto) (0.6-2.4) K/uL [place] # (Auto) (0.0-0.8) K/uL Eos # (Auto) (0.0-0.7) K/uL Baso # (Auto) (0.0-0.1) K/uL Nucleated RBC % /100WBC Nucleated RBCs # K/uL Sodium (136-146) mmol/L Potassium (3.5-5.1) mmol/L Chloride (98-110) mmol/L Carbon Dioxide (21-31) mmol/L BUN (6.0-23.0) mg/dL Creatinine (0.6-1.5) mg/dL Est Cr Clr Drug Dosing mL/min Estimated GFR (MDRD) ml/min Glucose (60-110) mg/dL POC Glucose 273 H 243 H 186 H (60-110) mg/dL Calcium (8.8-10.8) mg/dL Vancomycin Trough (5-15) ug/mL 02/07/17 02/07/17 02/07/17 Range/Units 08:21 08:21 08:21 WBC 10.26 (4.0-11.0) K/uL RBC 4.75 (4.50-5.90) M/uL Hgb 13.9 (13.0-17.0) g/dL Hct 43.3 (38.0-50.0) % MCV 91.2 (80.0-98.0) fL MCH 29.3 (27.0-32.0) pg MCHC 32.1 (31.0-37.0) g/dL RDW Std Deviation 43.8 (28.0-62.0) fl RDW Coeff of Maegan 13 (11.0-15.0) % Plt Count 223 (150-400) K/uL MPV 11.40 (7.40-12.00) fL Neut % (Auto) 73.0 (48.0-80.0) % Lymph % (Auto) 15.4 L (16.0-40.0) % [place] % (Auto) 10.7 (0.0-15.0) % Eos % (Auto) 0.7 (0.0-7.0) % Baso % (Auto) 0.2 (0.0-1.5) % Neut # (Auto) 7.5 H (1.4-5.7) K/uL Lymph # (Auto) 1.6 (0.6-2.4) K/uL [place] # (Auto) 1.1 H (0.0-0.8) K/uL Eos # (Auto) 0.1 (0.0-0.7) K/uL Baso # (Auto) 0.0 (0.0-0.1) K/uL Nucleated RBC % 0.0 /100WBC Nucleated RBCs # 0 K/uL Sodium 135 L (136-146) mmol/L Potassium 3.8 (3.5-5.1) mmol/L Chloride 103 (98-110) mmol/L Carbon Dioxide 26 (21-31) mmol/L BUN 11 (6.0-23.0) mg/dL Creatinine 0.9 (0.6-1.5) mg/dL Est Cr Clr Drug Dosing 95.29 mL/min Estimated GFR (MDRD) > 60.0 ml/min Glucose 274 H (60-110) mg/dL POC Glucose (60-110) mg/dL Calcium 7.9 L (8.8-10.8) mg/dL Vancomycin Trough 9.6 (5-15) ug/mL 02/07/17 Range/Units 11:19 WBC (4.0-11.0) K/uL RBC (4.50-5.90) M/uL Hgb (13.0-17.0) g/dL Hct (38.0-50.0) % MCV (80.0-98.0) fL MCH (27.0-32.0) pg MCHC (31.0-37.0) g/dL RDW Std Deviation (28.0-62.0) fl RDW Coeff of Maegan (11.0-15.0) % Plt Count (150-400) K/uL MPV (7.40-12.00) fL Neut % (Auto) (48.0-80.0) % Lymph % (Auto) (16.0-40.0) % [place] % (Auto) (0.0-15.0) % Eos % (Auto) (0.0-7.0) % Baso % (Auto) (0.0-1.5) % Neut # (Auto) (1.4-5.7) K/uL Lymph # (Auto) (0.6-2.4) K/uL [place] # (Auto) (0.0-0.8) K/uL Eos # (Auto) (0.0-0.7) K/uL Baso # (Auto) (0.0-0.1) K/uL Nucleated RBC % /100WBC Nucleated RBCs # K/uL Sodium (136-146) mmol/L Potassium (3.5-5.1) mmol/L Chloride (98-110) mmol/L Carbon Dioxide (21-31) mmol/L BUN (6.0-23.0) mg/dL Creatinine (0.6-1.5) mg/dL Est Cr Clr Drug Dosing mL/min Estimated GFR (MDRD) ml/min Glucose (60-110) mg/dL POC Glucose 221 H (60-110) mg/dL Calcium (8.8-10.8) mg/dL Vancomycin Trough (5-15) ug/mL [facility] Results last 24 hrs: Microbiology 02/06/17 08:08 Gram Stain - Preliminary Buttock, Left Med Orders - Current: Current Medications Albuterol/Ipratropium (Duoneb 3.0-0.5 Mg/3 Ml) 3 ml NEB Q6HRRT [facility] Last Admin: 02/07/17 11:41 Dose: 3 ml Enoxaparin Sodium (Lovenox) 40 mg SUBCUT Q24H [facility] Last Admin: 02/06/17 15:21 Dose: 40 mg Vancomycin HCl 1,500 mg/ (Sodium Chloride) 500 mls @ 250 mls/hr IV Q12H [facility] Last Admin: 02/07/17 09:25 Dose: 250 mls/hr Piperacillin Sod/Tazobactam (Sod 3.375 gm/ Sodium Chloride) 50 mls @ 100 mls/ hr IV Q6H [facility] Last Infusion: 02/07/17 06:43 Dose: 100 mls/hr Sodium Chloride (Normal Saline) 500 mls @ 500 mls/hr IV .BOLUS [facility] Last Admin: 02/05/17 16:04 Dose: 500 mls/hr Insulin Aspart (Novolog) 0 unit SUBCUT TIDAC [facility] PRN Reason: Protocol Last Admin: 02/07/17 11:45 Dose: 4 unit Insulin Glargine (Lantus Solostar) 15 units SUBCUT BEDTIME [facility] Last Admin: 02/06/17 20:34 Dose: 15 units Lisinopril (Prinivil) 10 mg PO DAILY [facility] Last Admin: 02/07/17 08:36 Dose: 10 mg Metoprolol Succinate (Toprol Xl) 25 mg PO DAILY [facility] Last Admin: 02/07/17 08:37 Dose: 25 mg Morphine Sulfate (Morphine) 3 mg IVPUSH Q2H PRN PRN Reason: Pain (severe 7-10) Last Admin: 02/07/17 09:35 Dose: 3 mg Nicotine (Habitrol) 7 mg TRDERM DAILY [facility] Last Admin: 02/07/17 08:37 Dose: 7 mg Ondansetron HCl (Zofran) 4 mg IVPUSH Q4H PRN PRN Reason: Nausea Oxycodone HCl (Oxycodone) 5 mg PO Q4H PRN PRN Reason: Pain (moderate 4-6) Last Admin: 02/06/17 15:44 Dose: 5 mg Rosuvastatin Calcium (Crestor) 40 mg PO BEDTIME [facility] Sodium Chloride (Saline Flush) 10 ml FLUSH ASDIRECTED PRN PRN Reason: Keep Vein Open Sodium Chloride (Saline Flush) 2.5 ml FLUSH ASDIRECTED PRN PRN Reason: Keep Vein Open Vancomycin HCl (Pharmacy To Dose - Vancomycin) 1 dose .XX ASDIRECTED [facility] Discontinued Medications Albuterol (Proventil Hfa) Confirm Administered Dose 6.7 gm INH .STK-MED ONE Stop: 02/06/17 08:04 Albuterol/Ipratropium (Duoneb 3.0-0.5 Mg/3 Ml) 3 ml NEB ONETIME ONE Stop: 02/06/17 08:47 Last Admin: 02/06/17 13:03 Dose: Not Given Bupivacaine HCl (Marcaine 0.5%) Confirm Administered Dose 30 ml .ROUTE .STK-MED ONE Stop: 02/05/17 13:48 Bupivacaine HCl (Sensorcaine-Mpf 0.25%) Confirm Administered Dose 10 ml .ROUTE .STK-MED ONE Stop: 02/05/17 13:48 Enoxaparin Sodium (Lovenox) 40 mg SUBCUT Q24H [facility] Last Admin: 02/05/17 13:44 Dose: Not Given Enoxaparin Sodium (Lovenox) 40 mg SUBCUT Q24H [facility] Ephedrine Sulfate (Ephedrine Sulfate) Confirm Administered Dose 50 mg .ROUTE .STK-MED ONE Stop: 02/06/17 08:01 Fentanyl (Sublimaze) 50 mcg IVPUSH ONETIME ONE Stop: 02/05/17 09:19 Last Admin: 02/05/17 09:44 Dose: 50 mcg Fentanyl (Sublimaze) Confirm Administered Dose 250 mcg .ROUTE .STK-MED ONE Stop: 02/05/17 15:50 Glycopyrrolate () Confirm Administered Dose 1 mg .ROUTE .STK-MED ONE Stop: 02/06/17 08:09 Sodium Chloride (Normal Saline) 1,000 mls @ 999 mls/hr IV STAT ONE Stop: 02/05/17 10:18 Last Admin: 02/05/17 09:43 Dose: 999 mls/hr Vancomycin HCl 1 gm/ Sodium (Chloride) 250 mls @ 250 mls/hr IV ONETIME ONE Stop: 02/05/17 10:17 Last Admin: 02/05/17 09:44 Dose: 250 mls/hr Sodium Chloride (Normal Saline) 1,000 mls @ 150 mls/hr IV ASDIRECTED [facility] Last Admin: 02/06/17 03:15 Dose: 150 mls/hr Sodium Chloride (Normal Saline) 1,000 mls @ 100 mls/hr IV ASDIRECTED [facility] Last Admin: 02/07/17 06:44 Dose: 100 mls/hr Insulin Aspart (Novolog) 0 unit SUBCUT TIDAC [facility] PRN Reason: Protocol Last Admin: 02/05/17 17:33 Dose: Not Given Insulin Aspart (Novolog) 0 unit SUBCUT Q6HR [facility] PRN Reason: Protocol Last Admin: 02/06/17 05:45 Dose: 4 units Insulin Human Regular (Novolin R) 10 unit IVPUSH ONETIME ONE PRN Reason: Protocol Stop: 02/05/17 10:30 Last Admin: 02/05/17 11:06 Dose: 10 units Insulin Human Regular (Novolin R) 10 unit SUBCUT ONETIME ONE PRN Reason: Protocol Stop: 02/05/17 10:31 Last Admin: 02/05/17 11:06 Dose: 10 units Iopamidol (Isovue Multipack-370 (76%)) 100 ml IVPUSH ONETIME STA Stop: 02/05/17 09:22 Last Admin: 02/05/17 22:36 Dose: Not Given Iopamidol (Isovue-300 (61%)) 60 ml IV ONETIME STA Stop: 02/05/17 10:42 Last Admin: 02/05/17 10:42 Dose: 60 ml Ipratropium Stafford (Atrovent Hfa) Confirm Administered Dose 12.9 gm .ROUTE .STK -MED ONE Stop: 02/06/17 08:04 Lidocaine (Xylocaine-Mpf 2%) Confirm Administered Dose 5 ml .ROUTE .STK-MED ONE Stop: 02/05/17 15:50 Lidocaine/Epinephrine (Xylocaine 1% With Epinephrine 1:100,000) Confirm Administered Dose 20 ml .ROUTE .STK-MED ONE Stop: 02/05/17 13:48 Midazolam HCl (Versed 1 Mg/Ml) Confirm Administered Dose 2 mg .ROUTE .STK-MED ONE Stop: 02/05/17 15:50 Neostigmine Methylsulfate (Neostigmine) Confirm Administered Dose 5 mg .ROUTE .STK-MED ONE Stop: 02/06/17 08:09 Ondansetron HCl (Zofran) 4 mg IVPUSH ONETIME ONE Stop: 02/05/17 09:19 Last Admin: 02/05/17 09:44 Dose: 4 mg Ondansetron HCl (Zofran) Confirm Administered Dose 4 mg .ROUTE .STK-MED ONE Stop: 02/05/17 15:50 Propofol (Diprivan 20 Ml) Confirm Administered Dose 200 mg .ROUTE .STK-MED ONE Stop: 02/05/17 15:50 Rocuronium Stafford (Zemuron) Confirm Administered Dose 50 mg .ROUTE .STK-MED ONE Stop: 02/05/17 15:51 Succinylcholine Chloride (Succinylcholine In Ns Pf) Confirm Administered Dose 200 mg .ROUTE .STK-MED ONE Stop: 02/06/17 07:20 - Exam Wound/Incisions: other (Packing removed. Abscess cavity appears clean dry and intact. ) General: alert, oriented Neck: supple Abdomen: soft, no tenderness, no distension - Problem List & Annotations (1) Cellulitis SNOMED Code(s): 738737346 Code(s): L03.90 - CELLULITIS, UNSPECIFIED Status: Acute Current Visit: Yes Qualifiers: Site of cellulitis: buttock Qualified Code(s): L03.317 - Cellulitis of buttock (2) Pilonidal abscess of cleft SNOMED Code(s): 651935650 Code(s): L05.01 - PILONIDAL CYST WITH ABSCESS Status: Acute Current Visit : Yes (3) COPD (chronic obstructive pulmonary disease) SNOMED Code(s): 65706996 Code(s): J44.9 - CHRONIC OBSTRUCTIVE PULMONARY DISEASE, UNSPECIFIED Status : Acute Current Visit: Yes - Problem List Review Problem List Initiated/Reviewed/Updated: Yes - My Orders Last 24 Hours: Active Orders 24 hr Category Date Time Status IS (RT) [RT Incentive Spirometry] [RC] ASDIRECTED Care 02/06/17 12:03 Active RT Aerosol Therapy [RC] ASDIRECTED Care 02/06/17 12:03 Active ADA Diabetic [[place] [employer] Diet] [DIET Diet 02/06/17 Lunch Active ] BASIC METABOLIC PANEL,BMP [CHEM] AM Lab 02/08/17 05:11 Ordered BASIC METABOLIC PANEL,BMP [CHEM] AM Lab 02/09/17 05:11 Ordered BASIC METABOLIC PANEL,BMP [CHEM] AM Lab 02/10/17 05:11 Ordered CBC WITH AUTO DIFF [HEME] AM Lab 02/08/17 05:11 Ordered CBC WITH AUTO DIFF [HEME] AM Lab 02/09/17 05:11 Ordered CBC WITH AUTO DIFF [HEME] AM Lab 02/10/17 05:11 Ordered Albuterol/Ipratropium [DuoNeb 3.0-0.5 MG/3 ML] Med 02/06/17 18:00 Active 3 ml NEB Q6HRRT Enoxaparin [Lovenox] Med 02/06/17 16:00 Active 40 mg SUBCUT Q24H Insulin Aspart [NovoLOG] Med 02/06/17 11:30 Active See Protocol SUBCUT TIDAC Insulin Glarg,Human.Rec.Analog [LantUS Solostar] Med 02/06/17 21:00 Active 15 units SUBCUT BEDTIME Lisinopril [Prinivil] Med 02/07/17 09:00 Active 10 mg PO DAILY Metoprolol Succinate [Toprol XL] Med 02/07/17 09:00 Active 25 mg PO DAILY Rosuvastatin [Crestor] Med 02/07/17 21:00 Active 40 mg PO BEDTIME Medication Orders Albuterol/Ipratropium (Duoneb 3.0-0.5 Mg/3 Ml) 3 ml NEB Q6HRRT [facility] Last Admin: 07/07/17 11:41 Dose: 3 ml Admin: 02/07/17 06:10 Dose: 3 ml Admin: 02/06/17 23:37 Dose: 3 ml Admin: 02/06/17 18:10 Dose: 3 ml Enoxaparin Sodium (Lovenox) 40 mg SUBCUT Q24H [facility] Last Admin: 02/06/17 15:21 Dose: 40 mg Vancomycin HCl 1,500 mg/ (Sodium Chloride) 500 mls @ 250 mls/hr IV Q12H [facility] Last Admin: 02/07/17 09:25 Dose: 250 mls/hr Infusion: 02/06/17 22:45 Dose: 250 mls/hr Admin: 02/06/17 20:42 Dose: 250 mls/hr Infusion: 02/06/17 12:33 Dose: 250 mls/hr Admin: 02/06/17 10:33 Dose: 250 mls/hr Infusion: 02/05/17 23:25 Dose: 250 mls/hr Admin: 02/05/17 21:25 Dose: 250 mls/hr Piperacillin Sod/Tazobactam (Sod 3.375 gm/ Sodium Chloride) 50 mls @ 100 mls/ hr IV Q6H [facility] Last Infusion: 02/07/17 06:43 Dose: 100 mls/hr Admin: 02/07/17 06:42 Dose: 100 mls/hr Infusion: 02/07/17 00:40 Dose: 100 mls/hr Admin: 02/07/17 00:09 Dose: 100 mls/hr Infusion: 02/06/17 18:30 Dose: 100 mls/hr Admin: 02/06/17 18:00 Dose: 100 mls/hr Infusion: 02/06/17 13:08 Dose: 100 mls/hr Admin: 02/06/17 12:38 Dose: 100 mls/hr Infusion: 02/06/17 07:10 Dose: 100 mls/hr Admin: 02/06/17 06:40 Dose: 100 mls/hr Infusion: 02/06/17 00:32 Dose: 100 mls/hr Admin: 02/06/17 00:02 Dose: 100 mls/hr Infusion: 02/05/17 18:41 Dose: 100 mls/hr Admin: 02/05/17 18:11 Dose: 100 mls/hr Infusion: 02/05/17 14:11 Dose: 100 mls/hr Admin: 02/05/17 13:41 Dose: 100 mls/hr Sodium Chloride (Normal Saline) 500 mls @ 500 mls/hr IV .BOLUS [facility] Last Admin: 02/05/17 16:04 Dose: 500 mls/hr Insulin Aspart (Novolog) 0 unit SUBCUT TIDAC [facility] PRN Reason: Protocol Last Admin: 02/07/17 11:45 Dose: 4 unit Admin: 02/07/17 07:23 Dose: 2 unit Admin: 02/06/17 17:29 Dose: 6 unit Admin: 02/06/17 11:38 Dose: 4 unit Insulin Glargine (Lantus Solostar) 15 units SUBCUT BEDTIME [facility] Last Admin: 02/06/17 20:34 Dose: 15 units Lisinopril (Prinivil) 10 mg PO DAILY [facility] Last Admin: 02/07/17 08:36 Dose: 10 mg Metoprolol Succinate (Toprol Xl) 25 mg PO DAILY [facility] Last Admin: 02/07/17 08:37 Dose: 25 mg Morphine Sulfate (Morphine) 3 mg IVPUSH Q2H PRN PRN Reason: Pain (severe 7-10) Last Admin: 02/07/17 09:35 Dose: 3 mg Admin: 02/05/17 16:00 Dose: 3 mg Nicotine (Habitrol) 7 mg TRDERM DAILY [facility] Last Admin: 02/07/17 08:37 Dose: 7 mg Admin: 02/06/17 10:31 Dose: 7 mg Admin: 02/05/17 12:33 Dose: 7 mg Ondansetron HCl (Zofran) 4 mg IVPUSH Q4H PRN PRN Reason: Nausea Oxycodone HCl (Oxycodone) 5 mg PO Q4H PRN PRN Reason: Pain (moderate 4-6) Last Admin: 02/06/17 15:44 Dose: 5 mg Rosuvastatin Calcium (Crestor) 40 mg PO BEDTIME [facility] Sodium Chloride (Saline Flush) 10 ml FLUSH ASDIRECTED PRN PRN Reason: Keep Vein Open Sodium Chloride (Saline Flush) 2.5 ml FLUSH ASDIRECTED PRN PRN Reason: Keep Vein Open Vancomycin HCl (Pharmacy To Dose - Vancomycin) 1 dose .XX ASDIRECTED [facility] - Assessment Assessment (Free Text/Narrative):: Patients dressing change went well. I would continue with daily wet to dry dressing changes. He should remove the packing before showering. Then he can bathe and dry the wound with simple air drying or patting gently with a towel. Then pack a small corner of gauze soaked in normal saline into the wound. It does not have to be packed in tightly. He can then cover this with dry dressings. The wound will close slowly over time. Follow up in clinic in 2-4 weeks for wound check. Will sign off for now. Please call with any questions or concerns.
[2017-02-07] MEDS: Enoxaparin 40 MG/0.4 ML Syringe SUBCUT SCH (16:44)
[2017-02-07] MEDS: Insulin Glargine,Human Rec. Analog 100 Units/ML 3 ML Pen SUBCUT SCH (20:58)
[2017-02-07] MEDS ORDERED: Rosuvastatin 10 MG Tab PO SCH (21:00)
[2017-02-08] MEDS: Albuterol/Ipratropium 3.0-0.5 MG/3 ML Neb Soln NEB SCH ×2 (00:36→05:59)
[2017-02-08] MEDS: Piperacillin/Tazobactam 3.375 GM in Sodium Chloride 0.9% 50 ML IV SCH ×2 (00:36→06:20)
[2017-02-08] MEDS: Insulin Aspart 100 Units/ML 3 ML Pen SUBCUT SCH ×2 (06:56→11:44)
[2017-02-08 07:20] LABS: CHLORIDE,CL 103 mmol/L (98-110); SODIUM,NA 137 mmol/L (136-146)
[2017-02-08 08:26] VITALS: BP 129/75
[2017-02-08] MEDS: Lisinopril 10 MG Tab PO SCH (09:00)
[2017-02-08] MEDS: Metoprolol Succinate 25 MG Tab.ER PO SCH (09:00)
[2017-02-08] MEDS: Nicotine 7 MG/24 Hr Patch TRDERM SCH (09:00)
[2017-02-08] MEDS ORDERED: Nitroglycerin 0.4 MG Tab.SL SL SCH (10:45)
--- NOTE | 2017-02-08 10:54 | PCM.DCSUM1 ---
Discharge Summary - Hospital Course Free Text/Narrative:: The patient was admitted for pilonidal cyst and subsequently consult did with surgery, Dr. Arboleda. Brief History: The patient was admitted secondary to refractory abscess and cellulitis of his buttocks. - Discharge Data Discharge Date: 02/08/17 Discharge Disposition: Home, Self-Care 01 Condition: Good - Patient Summary/Data Operative Procedure(s) Performed: Incision and drainage of abscess Consults: Consultations 02/05/17 12:06 Consult to Physician [CONS] Routine 02/07/17 13:23 Consult to DM [Consult to Diabetic Nurse Specialist] [CONS] Routine Hospital Course: February 08, 2017:The patient is a 56-year-old gentleman who is admitted secondary to worsening pain and swelling left buttocks from a pilonidal cyst. The patient had been initially evaluated by his primary care physician and had been placed on Bactrim DS. Patient says that he was unable to fill it and as a result he was admitted to the emergency department with increasing pain with moving, sitting up. The patient was admitted secondary to progressive worsening and he had been evaluated by surgeon Dr. Arboleda who had incised and drained the abscess. The patient had been placed on IV antibiotics consisting of Zosyn and vancomycin and cultures are currently pending. This is likely a MRSA infection. A pelvic CT had revealed a subcutaneous abscess measuring 2.5 cm without evidence of osteomyelitis. By day of discharge the patient's white blood cell count had normalized and his pain was very well controlled. The patient did not need any use of narcotics for pain control. The patient says that he has been tolerating his diet very well. The patient will be discharged with the recommendation for continuation of his diabetic diet as well as continuation of all of his medications. I have sent the patient home on Bactrim DS to take one tablet twice a day. This may be changed once cultures have identified the sensitivity of the organism. Patient is to follow-up with his primary care physician. Also I have recommended that the patient have activity as tolerated. He should follow-up also with the surgeon as scheduled. Patient's vital signs are currently stable. - Patient Instructions Diet: Diabetic Diet - Discharge Plan Home Medications: Home Meds Clopidogrel [Plavix] 75 mg PO DAILY 12/09/13 [History] Lisinopril 10 mg PO DAILY 12/09/13 [History] Metoprolol Succinate [Toprol XL] 25 mg PO DAILY 12/09/13 [History] Rosuvastatin [Crestor] 40 mg PO DAILY 12/09/13 [History] Aspirin 81 mg PO DAILY 05/22/15 [History] Glimepiride 1 mg PO DAILY 05/22/15 [History] Nitroglycerin [Nitrostat] 0.4 mg PO ASDIRECTED 05/22/15 [History] sitaGLIPtin Phos/Metformin HCl [Janumet 50-500 MG] 50 - 500 mg PO BIDMEALS 02/06 [History] Patient Handouts: Incision and Drainage of a Pilonidal Cyst, Incision and Drainage of a Pilonidal Cyst, Care After Referrals: Oumou Arboleda MD [Physician] - 02/14/17 10:00 am Toro Jc MD [Primary Care Provider] - 02/13/17 9:00 am - Discharge Summary/Plan Comment DC Time >30 min.: Yes - General Info Subjective Update: Patient alert and oriented this morning, has some pain to buttock, but this is improving. Denies chest pain or palpitations and no SOB. Functional Status: Reports: pain controlled, tolerating diet - Review of Systems General: Reports: No Symptoms HEENT: Reports: no symptoms Pulmonary: Reports: no symptoms Cardiovascular: Reports: No Symptoms Gastrointestinal: Reports: No symptoms Genitourinary: Reports: no symptoms Musculoskeletal: Reports: no symptoms Skin: Reports: no symptoms Neurological: Reports: No Symptoms Psychiatric: Reports: no symptoms - Patient Data Vitals - Most Recent: Last Vital Signs Temp 36.3 C 02/08/17 08:00 Pulse 89 02/08/17 09:00 Resp 20 02/08/17 08:00 BP 129/75 02/08/17 09:00 Pulse Ox 91 L 02/08/17 08:00 Weight - Most Recent: 94 kg I&O - Last 24 hours: Intake & Output 02/07/17 02/08/17 02/08/17 22:59 06:59 14:59 Intake Total 1050 1540 Output Total 1700 2009 Balance -650 -470 Lab Results - Last 24 hrs: Laboratory Results - last 24 hr 02/07/17 02/07/17 02/07/17 Range/Units 11:19 16:00 21:29 WBC (4.0-11.0) K/uL RBC (4.50-5.90) M/uL Hgb (13.0-17.0) g/dL Hct (38.0-50.0) % MCV (80.0-98.0) fL MCH (27.0-32.0) pg MCHC (31.0-37.0) g/dL RDW Std Deviation (28.0-62.0) fl RDW Coeff of Meagan (11.0-15.0) % Plt Count (150-400) K/uL MPV (7.40-12.00) fL Neut % (Auto) (48.0-80.0) % Lymph % (Auto) (16.0-40.0) % Nye % (Auto) (0.0-15.0) % Eos % (Auto) (0.0-7.0) % Baso % (Auto) (0.0-1.5) % Neut # (Auto) (1.4-5.7) K/uL Lymph # (Auto) (0.6-2.4) K/uL Nye # (Auto) (0.0-0.8) K/uL Eos # (Auto) (0.0-0.7) K/uL Baso # (Auto) (0.0-0.1) K/uL Nucleated RBC % /100WBC Nucleated RBCs # K/uL Sodium (136-146) mmol/L Potassium (3.5-5.1) mmol/L Chloride (98-110) mmol/L Carbon Dioxide (21-31) mmol/L BUN (6.0-23.0) mg/dL Creatinine (0.6-1.5) mg/dL Est Cr Clr Drug Dosing mL/min Estimated GFR (MDRD) ml/min Glucose (60-110) mg/dL POC Glucose 221 H 236 H 233 H (60-110) mg/dL Calcium (8.8-10.8) mg/dL 02/08/17 02/08/17 02/08/17 Range/Units 06:15 06:15 06:18 WBC 7.70 (4.0-11.0) K/uL RBC 4.85 (4.50-5.90) M/uL Hgb 14.3 (13.0-17.0) g/dL Hct 43.9 (38.0-50.0) % MCV 90.5 (80.0-98.0) fL MCH 29.5 (27.0-32.0) pg MCHC 32.6 (31.0-37.0) g/dL RDW Std Deviation 43.2 (28.0-62.0) fl RDW Coeff of Maegan 13 (11.0-15.0) % Plt Count 258 (150-400) K/uL MPV 11.20 (7.40-12.00) fL Neut % (Auto) 61.0 (48.0-80.0) % Lymph % (Auto) 25.5 (16.0-40.0) % Nye % (Auto) 10.5 (0.0-15.0) % Eos % (Auto) 2.6 (0.0-7.0) % Baso % (Auto) 0.4 (0.0-1.5) % Neut # (Auto) 4.7 (1.4-5.7) K/uL Lymph # (Auto) 2.0 (0.6-2.4) K/uL Nye # (Auto) 0.8 (0.0-0.8) K/uL Eos # (Auto) 0.2 (0.0-0.7) K/uL Baso # (Auto) 0.0 (0.0-0.1) K/uL Nucleated RBC % 0.0 /100WBC Nucleated RBCs # 0 K/uL Sodium 137 (136-146) mmol/L Potassium 3.7 (3.5-5.1) mmol/L Chloride 103 (98-110) mmol/L Carbon Dioxide 27 (21-31) mmol/L BUN 12 (6.0-23.0) mg/dL Creatinine 0.9 (0.6-1.5) mg/dL Est Cr Clr Drug Dosing 95.29 mL/min Estimated GFR (MDRD) > 60.0 ml/min Glucose 205 H (60-110) mg/dL POC Glucose 187 H (60-110) mg/dL Calcium 8.6 L (8.8-10.8) mg/dL DAYSI Results - Last 24 hrs: Microbiology 02/06/17 08:08 Gram Stain - Final Buttock, Left Wound Culture - Final No Growth Med Orders - Current: Current Medications Albuterol/Ipratropium (Duoneb 3.0-0.5 Mg/3 Ml) 3 ml NEB Q6HRRT [facility] Last Admin: 02/08/17 05:59 Dose: 3 ml Clopidogrel Bisulfate (Plavix) 75 mg PO DAILY [facility] Enoxaparin Sodium (Lovenox) 40 mg SUBCUT Q24H [facility] Last Admin: 02/07/17 16:44 Dose: 40 mg Glimepiride (Glimepiride) 1 mg PO DAILY [facility] Vancomycin HCl 1,500 mg/ (Sodium Chloride) 500 mls @ 250 mls/hr IV Q12H [facility] Last Admin: 02/08/17 09:01 Dose: 250 mls/hr Piperacillin Sod/Tazobactam (Sod 3.375 gm/ Sodium Chloride) 50 mls @ 100 mls/ hr IV Q6H [facility] Last Admin: 02/08/17 06:20 Dose: 100 mls/hr Sodium Chloride (Normal Saline) 500 mls @ 500 mls/hr IV .BOLUS [facility] Last Admin: 02/05/17 16:04 Dose: 500 mls/hr Insulin Aspart (Novolog) 0 unit SUBCUT TIDAC [facility] PRN Reason: Protocol Last Admin: 02/08/17 06:56 Dose: 2 unit Insulin Glargine (Lantus Solostar) 15 units SUBCUT BEDTIME [facility] Last Admin: 02/07/17 20:58 Dose: 15 units Lisinopril (Prinivil) 10 mg PO DAILY [facility] Last Admin: 02/08/17 09:00 Dose: 10 mg Metoprolol Succinate (Toprol Xl) 25 mg PO DAILY [facility] Last Admin: 02/08/17 09:00 Dose: 25 mg Morphine Sulfate (Morphine) 3 mg IVPUSH Q2H PRN PRN Reason: Pain (severe 7-10) Last Admin: 02/07/17 09:35 Dose: 3 mg Nicotine (Habitrol) 7 mg TRDERM DAILY [facility] Last Admin: 02/08/17 09:00 Dose: 7 mg Nitroglycerin (Nitrostat) 0.4 mg SL ASDIRECTED [facility] Ondansetron HCl (Zofran) 4 mg IVPUSH Q4H PRN PRN Reason: Nausea Oxycodone HCl (Oxycodone) 5 mg PO Q4H PRN PRN Reason: Pain (moderate 4-6) Last Admin: 02/06/17 15:44 Dose: 5 mg Rosuvastatin Calcium (Crestor) 40 mg PO BEDTIME [facility] Last Admin: 02/07/17 21:00 Dose: 40 mg Sodium Chloride (Saline Flush) 10 ml FLUSH ASDIRECTED PRN PRN Reason: Keep Vein Open Sodium Chloride (Saline Flush) 2.5 ml FLUSH ASDIRECTED PRN PRN Reason: Keep Vein Open Trimethoprim/Sulfamethoxazole (Septra Ds) 1 tab PO BID [facility] Stop: 02/18/17 23:59 Vancomycin HCl (Pharmacy To Dose - Vancomycin) 1 dose .XX ASDIRECTED [place] Discontinued Medications Albuterol (Proventil Hfa) Confirm Administered Dose 6.7 gm INH .STK-MED ONE Stop: 02/06/17 08:04 Albuterol/Ipratropium (Duoneb 3.0-0.5 Mg/3 Ml) 3 ml NEB ONETIME ONE Stop: 02/06/17 08:47 Last Admin: 02/06/17 13:03 Dose: Not Given Bupivacaine HCl (Marcaine 0.5%) Confirm Administered Dose 30 ml .ROUTE .STK-MED ONE Stop: 02/05/17 13:48 Bupivacaine HCl (Sensorcaine-Mpf 0.25%) Confirm Administered Dose 10 ml .ROUTE .STK-MED ONE Stop: 02/05/17 13:48 Enoxaparin Sodium (Lovenox) 40 mg SUBCUT Q24H [facility] Last Admin: 02/05/17 13:44 Dose: Not Given Enoxaparin Sodium (Lovenox) 40 mg SUBCUT Q24H [facility] Ephedrine Sulfate (Ephedrine Sulfate) Confirm Administered Dose 50 mg .ROUTE .STK-MED ONE Stop: 02/06/17 08:01 Fentanyl (Sublimaze) 50 mcg IVPUSH ONETIME ONE Stop: 02/05/17 09:19 Last Admin: 02/05/17 09:44 Dose: 50 mcg Fentanyl (Sublimaze) Confirm Administered Dose 250 mcg .ROUTE .STK-MED ONE Stop: 02/05/17 15:50 Glycopyrrolate () Confirm Administered Dose 1 mg .ROUTE .STK-MED ONE Stop: 02/06/17 08:09 Sodium Chloride (Normal Saline) 1,000 mls @ 999 mls/hr IV STAT ONE Stop: 02/05/17 10:18 Last Admin: 02/05/17 09:43 Dose: 999 mls/hr Vancomycin HCl 1 gm/ Sodium (Chloride) 250 mls @ 250 mls/hr IV ONETIME ONE Stop: 02/05/17 10:17 Last Admin: 02/05/17 09:44 Dose: 250 mls/hr Sodium Chloride (Normal Saline) 1,000 mls @ 150 mls/hr IV ASDIRECTED [facility] Last Admin: 02/06/17 03:15 Dose: 150 mls/hr Sodium Chloride (Normal Saline) 1,000 mls @ 100 mls/hr IV ASDIRECTED [facility] Last Admin: 02/07/17 06:44 Dose: 100 mls/hr Insulin Aspart (Novolog) 0 unit SUBCUT TIDAC [facility] PRN Reason: Protocol Last Admin: 02/05/17 17:33 Dose: Not Given Insulin Aspart (Novolog) 0 unit SUBCUT Q6HR [facility] PRN Reason: Protocol Last Admin: 02/06/17 05:45 Dose: 4 units Insulin Human Regular (Novolin R) 10 unit IVPUSH ONETIME ONE PRN Reason: Protocol Stop: 02/05/17 10:30 Last Admin: 02/05/17 11:06 Dose: 10 units Insulin Human Regular (Novolin R) 10 unit SUBCUT ONETIME ONE PRN Reason: Protocol Stop: 02/05/17 10:31 Last Admin: 02/05/17 11:06 Dose: 10 units Iopamidol (Isovue Multipack-370 (76%)) 100 ml IVPUSH ONETIME STA Stop: 02/05/17 09:22 Last Admin: 02/05/17 22:36 Dose: Not Given Iopamidol (Isovue-300 (61%)) 60 ml IV ONETIME STA Stop: 02/05/17 10:42 Last Admin: 02/05/17 10:42 Dose: 60 ml Ipratropium [place] (Atrovent Hfa) Confirm Administered Dose 12.9 gm .ROUTE .STK -MED ONE Stop: 02/06/17 08:04 Lidocaine (Xylocaine-Mpf 2%) Confirm Administered Dose 5 ml .ROUTE .STK-MED ONE Stop: 02/05/17 15:50 Lidocaine/Epinephrine (Xylocaine 1% With Epinephrine 1:100,000) Confirm Administered Dose 20 ml .ROUTE .STK-MED ONE Stop: 02/05/17 13:48 Midazolam HCl (Versed 1 Mg/Ml) Confirm Administered Dose 2 mg .ROUTE .STK-MED ONE Stop: 02/05/17 15:50 Neostigmine Methylsulfate (Neostigmine) Confirm Administered Dose 5 mg .ROUTE .STK-MED ONE Stop: 02/06/17 08:09 Ondansetron HCl (Zofran) 4 mg IVPUSH ONETIME ONE Stop: 02/05/17 09:19 Last Admin: 02/05/17 09:44 Dose: 4 mg Ondansetron HCl (Zofran) Confirm Administered Dose 4 mg .ROUTE .STK-MED ONE Stop: 02/05/17 15:50 Propofol (Diprivan 20 Ml) Confirm Administered Dose 200 mg .ROUTE .STK-MED ONE Stop: 02/05/17 15:50 Rocuronium [place] (Zemuron) Confirm Administered Dose 50 mg .ROUTE .STK-MED ONE Stop: 02/05/17 15:51 Succinylcholine Chloride (Succinylcholine In Ns Pf) Confirm Administered Dose 200 mg .ROUTE .STK-MED ONE Stop: 02/06/17 07:20 - Exam Quality Assessment: Denies: supplemental oxygen General: Reports: alert, oriented, cooperative HEENT: Reports: Pupils equal, Pupils reactive, EOMI Neck: Reports: supple, trachea midline Lungs: Reports: Clear to auscultation, Normal respiratory effort Cardiovascular: Reports: Regular Rate, Regular Rhythm Abdomen: Reports: bowel sounds present, soft, no tenderness Wound/Incisions: Reports: healing well Neurological: Reports: no new focal deficit Psy/Mental Status: Reports: alert, normal affect *Q Meaningful Use (DIS) - VTE *Q VTE Criteria *Q: - Stroke *Q Stroke Criteria *Q: - AMI *Q AMI Criteria *Q:
[2017-02-08] MEDS ORDERED: Sulfamethoxazole/Trimethoprim 800-160 MG Tab PO SCH (21:00)
[2017-02-09] MEDS ORDERED: Clopidogrel 75 MG Tab PO SCH (09:00)
== END 2017-02-08 12:25 | disposition home or self-care (01) | DRG 364 ==
LOC: MW.ED 08:52 → MW.MS 11:42
PROVIDERS: ADMIT Internal Medicine; ATTEND Internal Medicine
PROC: 0J990ZZ Drainage of Buttock Subcutaneous Tissue and Fascia, Open Approach (ICD-10-PCS; principal; 2017-02-06)
DX: L05.01 Pilonidal cyst with abscess (principal); L03.317 Cellulitis of buttock; E11.65 Type 2 diabetes mellitus with hyperglycemia; E87.1 Hypo-osmolality and hyponatremia; J44.9 Chronic obstructive pulmonary disease, unspecified; I25.10 Atherosclerotic heart disease of native coronary artery without angina pectoris; E78.00 Pure hypercholesterolemia, unspecified; I10 Essential (primary) hypertension; F17.200 Nicotine dependence, unspecified, uncomplicated; I25.2 Old myocardial infarction; Z79.899 Other long term (current) drug therapy; Z95.5 Presence of coronary angioplasty implant and graft
CPT/HCPCS: 00300; 36415; 36600; 71020; 71020-26; 72193; 72193-26; 80048; 80053; 80202; 81001; 82803; 82962; 83036; 83605; 85025; 85610; 87040; 87070; 87075; 87205; 93005; 94640; 94660; 96361; 96365; 96372; 96375; 99285; 99285-25; A9270-GY; J1650; J1815-GY ×2; J2250; J2270; J2405; J2543; J2704; J3010; J3370; J7040; J7050; Q9967

== ENCOUNTER 2017-10-27 15:02 | Emergency (ER) | payer BC ==
[2017-10-27] MEDS ORDERED: Insulin Regular, Human 100 Units/ML 10 ML Vial SUBCUT ONE (15:05)
[2017-10-27] MEDS ORDERED: Sodium Chloride 0.9% 2.5 ML Syringe FLUSH PRN (15:07)
[2017-10-27] MEDS ORDERED: Sodium Chloride 0.9% 10 ML Syringe FLUSH PRN (15:07)
[2017-10-27] MEDS ORDERED: Ketorolac 30 MG/ML SDV IVPUSH ONE (15:08)
[2017-10-27] MEDS ORDERED: Insulin Regular, Human 100 Units/ML 10 ML Vial IVPUSH ONE (15:53)
[2017-10-27 16:16] LABS: CHLORIDE,CL 99 mmol/L (98-107); SODIUM,NA 134 mmol/L (136-148)
[2017-10-27] MEDS ORDERED: Morphine 4 MG/ML Syringe ONE (16:31)
--- NOTE | 2017-10-27 16:32 | CR ---
EXAMINATION: Two-view chest (PA and Lateral views). HISTORY: Shortness of breath. COMPARISON: 02/05/2017. FINDINGS: The trachea is midline. The cardiomediastinal silhouette is within normal limits. No pulmonary infilt rates, effusions or pneumothorax. Numerous punctate calcifications noted bilaterally. Median sternoto my wires are present. Old left-sided rib fractures noted. IMPRESSION: 1. No acute cardiopulmonary process. 2. Numerous punctate calcifications bilaterally, likely the sequela of previous viral or granulomatou s infection.
[2017-10-27] MEDS ORDERED: Ondansetron 4 MG/2 ML SDV ONE (16:33)
--- NOTE | 2017-10-27 16:33 | CR ---
EXAMINATION: Left shoulder HISTORY: Pain COMPARISON: None TECHNIQUE: 3 views FINDINGS: There is no acute osseous abnormality, dislocation, or fracture. Bone mineralization and dionicio int spaces are preserved. The acromioclavicular joint is normal. Punctate pulmonary calcifications ag ain noted. IMPRESSION: No acute osseous abnormality identified.
[2017-10-27] MEDS ORDERED: Morphine 4 MG/ML Syringe IVPUSH ONE (16:37)
[2017-10-27] MEDS ORDERED: Ondansetron 4 MG/2 ML SDV IVPUSH ONE (16:37)
--- NOTE | 2017-10-27 16:40 | EDM.PDOC ---
ED HPI GENERAL MEDICAL PROBLEM - General Chief Complaint: Upper Extremity Injury/Pain Stated Complaint: PAIN Time Seen by Provider: 10/27/17 15:08 Source of Information: Reports: Patient, EMS History Limitations: Reports: No Limitations - History of Present Illness INITIAL COMMENTS - FREE TEXT/NARRATIVE: HISTORY AND PHYSICAL: []56-year-old male presenting with left-sided arm pain and shoulder pain per EMS History of Present Illness: []Patient was shoveling snow 2 days ago had a light aching to his shoulder. As he was driving today suddenly had worsening of the pain to the scapular area. He called EMS and took an aspirin while he was waiting for them. He did express concerns of having a stroke. He has not taken his medications today Patient has previous history of open heart surgery 3-[address] Barnett He is a type II diabetic History COPD He Is a smoker Review of Systems: As per history of present illness and below otherwise all systems reviewed and negative. Past medical history: As per history of present illness and as reviewed below otherwise noncontributory. Surgical history: As per history of present illness and as reviewed below otherwise noncontributory. Social history: No reported history of drug or alcohol abuse. Family history: As per history of present illness and as reviewed below otherwise noncontributory. Physical exam: Alert and oriented gentleman answering questions appropriately skin is warm and dry. Patient is unable to lift his left arm more than 80 HEENT: Atraumatic, normocehpalic, pupils reactive, negative for conjunctival pallor or scleral icterus, mucous membranes moist, throat clear, neck supple, nontender, trachea midline. Lungs: Clear to auscultation, breath sounds equal bilaterally, chest non tender. Shallow breath sounds Heart: S1S2, regular, negative for clicks, rubs, or JVD. EKG obtained sinus rhythm at 60 Abdomen: Soft, nondistended, nontender. Negative for masses or hepatossplenmegaly. Negative for costovertebral tenderness. Pelvis: Stable nontender. Genitourinary: Deferred. Rectal: Deferred Extremities: Atraumatic, negative for cords or calf pain. Neurovascular unremarkable. Neuro: Awake, alert, oriented. Cranial nerves II through XII unremarkable. Cerebellum unremarkable. Motor and sensory unremarkable throughout. Exam nonfocal. Discussed with the patient that his troponin levels elevated at 3.78 to be transferred to [place] to receive sliced care. Discussed with Dr. Calvo this patient and the troponin level being elevated at 3.7 Patient is improved with pain level with the addition of the morphine. Ice chips were given Diagnostics: []CBC CMP amylase lipase troponin EKG CXR Therapeutics: [] Toradol 30 IV Morphine 4 mg Zofran 4 mg Impression: [Acute AL] Plan: []Transfer per ground ambulance to [facility] Definitive disposition and diagnosis as appropriate pending reevaluation and review of above. Onset: Gradual Duration: Day(s): (3) Location: Reports: Back, Upper Extremity, Left Quality: Reports: Ache, Stabbing Severity: Severe Improves with: Reports: None Worsens with: Reports: None Context: Reports: Activity Left Upper Back Pain Score (Numeric/FACES): 8 - Related Data Allergies Allergy/AdvReac Type Severity Reaction Status Date / Time No Known Allergies Allergy Verified 10/27/17 15:25 Home Meds: Home Meds Clopidogrel [Plavix] 75 mg PO DAILY 12/09/13 [History] Lisinopril 10 mg PO DAILY 12/09/13 [History] Metoprolol Succinate [Toprol XL] 25 mg PO DAILY 12/09/13 [History] Rosuvastatin [Crestor] 40 mg PO DAILY 12/09/13 [History] Aspirin 81 mg PO DAILY 05/22/15 [History] Glimepiride 1 mg PO DAILY 05/22/15 [History] Nitroglycerin [Nitrostat] 0.4 mg PO ASDIRECTED 05/22/15 [History] sitaGLIPtin Phos/Metformin HCl [Janumet 50-500 MG] 50 - 500 mg PO BIDMEALS 02/06 [History] Past Medical History - Past Health History Medical/Surgical History: Denies Medical/Surgical History HEENT History: Reports: Impaired Vision Cardiovascular History: Reports: Bypass, High Cholesterol, Hypertension, AL, Stents Respiratory History: Reports: COPD Endocrine/Metabolic History: Reports: Diabetes, Type II - Infectious Disease History Infectious Disease History: Reports: None - Past Surgical History Cardiovascular Surgical History: Reports: Coronary Artery Bypass, Coronary Artery Stent GI Surgical History: Reports: None Other Musculoskeletal Surgeries/Procedures:: lower back surgery Social & Family History - Family History Family Medical History: Noncontributory - Tobacco Use Smoking Status *Q: Current Every Day Smoker Years of Tobacco use: 30 Packs/Tins Daily: 2 Used Tobacco, but Quit: Yes Month/Year Tobacco Last Used: sep 2013 Second Hand Smoke Exposure: No - Caffeine Use Caffeine Use: Reports: Coffee Caffeine Use Comment: 1cup every other day - Alcohol Use Days Per Week of Alcohol Use: 0 - Recreational Drug Use Recreational Drug Use: No Review of Systems - Review of Systems Review Of Systems: ROS reveals no pertinent complaints other than HPI. ED EXAM, GENERAL - Physical Exam Exam: See Below (see dictation) EKG INTERPRETATION EKG Date: 10/27/17 Rhythm: NSR Rate (Beats/Min): 60 Comparison: No Change Course - Vital Signs Last Recorded V/S: Last Vital Signs Temp 36.6 C 10/27/17 15:08 Pulse 65 10/27/17 15:08 Resp 18 10/27/17 15:08 BP 136/80 10/27/17 15:08 Pulse Ox 94 L 10/27/17 15:08 - Orders/Labs/Meds Orders: Active Orders 24 hr Category Date Time Status Blood Glucose Check, Bedside [RC] ONETIME Care 10/27/17 15:08 Active EKG Documentation Completion [RC] STAT Care 10/27/17 15:08 Active Sodium Chloride 0.9% [Normal Saline] 1,000 ml Med 10/27/17 16:42 Active IV .Bolus Sodium Chloride 0.9% [Saline Flush] Med 10/27/17 15:07 Active 10 ml FLUSH ASDIRECTED PRN Sodium Chloride 0.9% [Saline Flush] Med 10/27/17 15:07 Active 2.5 ml FLUSH ASDIRECTED PRN Saline Lock Insert [OM.PC] Stat Oth 10/27/17 15:07 Ordered Medication Orders Sodium Chloride (Normal Saline) 1,000 mls @ 999 mls/hr IV .Bolus ONE Stop: 10/27/17 17:42 Last Admin: 10/27/17 16:49 Dose: 999 mls/hr Sodium Chloride (Saline Flush) 10 ml FLUSH ASDIRECTED PRN PRN Reason: Keep Vein Open Sodium Chloride (Saline Flush) 2.5 ml FLUSH ASDIRECTED PRN PRN Reason: Keep Vein Open Labs: Laboratory Tests 10/27/17 10/27/17 10/27/17 Range/Units 15:09 15:30 15:30 WBC 10.20 (4.0-11.0) K/uL RBC 5.73 (4.50-5.90) M/uL Hgb 17.5 H (13.0-17.0) g/dL Hct 51.0 H (38.0-50.0) % MCV 89.0 (80.0-98.0) fL MCH 30.5 (27.0-32.0) pg MCHC 34.3 (31.0-37.0) g/dL RDW Std Deviation 42.3 (28.0-62.0) fl RDW Coeff of Maegan 13 (11.0-15.0) % Plt Count 238 (150-400) K/uL MPV 11.20 (7.40-12.00) fL Neut % (Auto) 78.8 (48.0-80.0) % Lymph % (Auto) 12.7 L (16.0-40.0) % Tyrrell % (Auto) 7.6 (0.0-15.0) % Eos % (Auto) 0.6 (0.0-7.0) % Baso % (Auto) 0.3 (0.0-1.5) % Neut # (Auto) 8.0 H (1.4-5.7) K/uL Lymph # (Auto) 1.3 (0.6-2.4) K/uL Tyrrell # (Auto) 0.8 (0.0-0.8) K/uL Eos # (Auto) 0.1 (0.0-0.7) K/uL Baso # (Auto) 0.0 (0.0-0.1) K/uL Nucleated RBC % 0.0 /100WBC Nucleated RBCs # 0 K/uL Sodium 134 L (136-148) mmol/L Potassium 4.5 (3.5-5.1) mmol/L Chloride 99 (98-107) mmol/L Carbon Dioxide 28.6 (21.0-32.0) mmol/L BUN 17 (7.0-18.0) mg/dL Creatinine 1.0 (0.8-1.3) mg/dL Est Cr Clr Drug Dosing 85.76 mL/min Estimated GFR (MDRD) > 60.0 ml/min Glucose 382 H (74-106) mg/dL POC Glucose 410 H (60-110) mg/dL Calcium 8.4 L (8.5-10.1) mg/dL Total Bilirubin 0.3 (0.2-1.0) mg/dL AST 67 H (15-37) IU/L ALT 36 (14-63) IU/L Alkaline Phosphatase 109 (46-116) U/L Troponin I 3.753 H* (0.000-0.056) ng/mL Total Protein 7.5 (6.4-8.2) g/dL Albumin 3.7 (3.4-5.0) g/dL Globulin 3.8 H (2.0-3.5) g/dL Albumin/Globulin Ratio 1.0 L (1.3-2.8) Amylase 61 (25-115) U/L Lipase 425 H (73-393) U/L 10/27/17 10/27/17 Range/Units 15:49 16:46 WBC (4.0-11.0) K/uL RBC (4.50-5.90) M/uL Hgb (13.0-17.0) g/dL Hct (38.0-50.0) % MCV (80.0-98.0) fL MCH (27.0-32.0) pg MCHC (31.0-37.0) g/dL RDW Std Deviation (28.0-62.0) fl RDW Coeff of Maegan (11.0-15.0) % Plt Count (150-400) K/uL MPV (7.40-12.00) fL Neut % (Auto) (48.0-80.0) % Lymph % (Auto) (16.0-40.0) % Tyrrell % (Auto) (0.0-15.0) % Eos % (Auto) (0.0-7.0) % Baso % (Auto) (0.0-1.5) % Neut # (Auto) (1.4-5.7) K/uL Lymph # (Auto) (0.6-2.4) K/uL Tyrrell # (Auto) (0.0-0.8) K/uL Eos # (Auto) (0.0-0.7) K/uL Baso # (Auto) (0.0-0.1) K/uL Nucleated RBC % /100WBC Nucleated RBCs # K/uL Sodium (136-148) mmol/L Potassium (3.5-5.1) mmol/L Chloride (98-107) mmol/L Carbon Dioxide (21.0-32.0) mmol/L BUN (7.0-18.0) mg/dL Creatinine (0.8-1.3) mg/dL Est Cr Clr Drug Dosing mL/min Estimated GFR (MDRD) ml/min Glucose (74-106) mg/dL POC Glucose 356 H 179 H (60-110) mg/dL Calcium (8.5-10.1) mg/dL Total Bilirubin (0.2-1.0) mg/dL AST (15-37) IU/L ALT (14-63) IU/L Alkaline Phosphatase (46-116) U/L Troponin I (0.000-0.056) ng/mL Total Protein (6.4-8.2) g/dL Albumin (3.4-5.0) g/dL Globulin (2.0-3.5) g/dL Albumin/Globulin Ratio (1.3-2.8) Amylase (25-115) U/L Lipase (73-393) U/L Meds: Medications Generic Name Dose Route Start Last Admin Trade Name Freq PRN Reason Stop Dose Admin Sodium Chloride 1,000 mls @ 999 mls/hr 10/27/17 16:42 10/27/17 16:49 Normal Saline IV 10/27/17 17:42 999 mls/hr .Bolus ONE Administration Sodium Chloride 10 ml 10/27/17 15:07 Saline Flush FLUSH ASDIRECTED PRN Keep Vein Open Sodium Chloride 2.5 ml 10/27/17 15:07 Saline Flush FLUSH ASDIRECTED PRN Keep Vein Open Discontinued Medications Generic Name Dose Route Start Last Admin Trade Name Freq PRN Reason Stop Dose Admin Insulin Human Regular 10 unit 10/27/17 15:05 10/27/17 15:16 Novolin R SUBCUT 10/27/17 15:06 10 units ONETIME ONE Administration Protocol Insulin Human Regular 10 unit 10/27/17 15:53 10/27/17 15:58 Novolin R IVPUSH 10/27/17 15:54 10 units ONETIME ONE Administration Protocol Ketorolac Tromethamine 30 mg 10/27/17 15:08 10/27/17 15:17 Toradol IVPUSH 10/27/17 15:09 30 mg ONETIME ONE Administration Morphine Sulfate Confirm 10/27/17 16:31 10/27/17 16:48 Morphine Administered 10/27/17 16:32 Not Given Dose 4 mg .ROUTE .STK-MED ONE Morphine Sulfate 4 mg 10/27/17 16:37 10/27/17 16:38 Morphine IVPUSH 10/27/17 16:38 4 mg ONETIME ONE Administration Nitroglycerin 1 gm 10/27/17 16:48 Nitro-Bid 2% TOP 10/27/17 16:49 ONETIME ONE Ondansetron HCl Confirm 10/27/17 16:33 10/27/17 16:48 Zofran Administered 10/27/17 16:34 Not Given Dose 4 mg .ROUTE .STK-MED ONE Ondansetron HCl 4 mg 10/27/17 16:37 10/27/17 16:37 Zofran IVPUSH 10/27/17 16:38 4 mg ONETIME ONE Administration Departure - Departure Time of Disposition: 16:58 Disposition: DC/Tfer to Acute Hospital 02 Condition: Fair Clinical Impression: Myocardial infarction Qualifiers: Myocardial infarction type: non-ST elevation myocardial infarction Qualified Code(s): I21.4 - Non-ST elevation (NSTEMI) myocardial infarction - Discharge Information Instructions: Non-ST Segment Elevation Heart Attack Referrals: Toro Jc MD [Primary Care Provider] - Forms: ED Department Discharge - My Orders Last 24 Hours: My Active Orders 10/27/17 15:07 Sodium Chloride 0.9% [Saline Flush] 10 ml FLUSH ASDIRECTED PRN Sodium Chloride 0.9% [Saline Flush] 2.5 ml FLUSH ASDIRECTED PRN Saline Lock Insert [OM.PC] Stat 10/27/17 15:08 Blood Glucose Check, Bedside [RC] ONETIME EKG Documentation Completion [RC] STAT 10/27/17 16:42 Sodium Chloride 0.9% [Normal Saline] 1,000 ml IV .Bolus - Assessment/Plan Last 24 Hours: My Active Orders 10/27/17 15:07 Sodium Chloride 0.9% [Saline Flush] 10 ml FLUSH ASDIRECTED PRN Sodium Chloride 0.9% [Saline Flush] 2.5 ml FLUSH ASDIRECTED PRN Saline Lock Insert [OM.PC] Stat 10/27/17 15:08 Blood Glucose Check, Bedside [RC] ONETIME EKG Documentation Completion [RC] STAT 10/27/17 16:42 Sodium Chloride 0.9% [Normal Saline] 1,000 ml IV .Bolus
[2017-10-27] MEDS ORDERED: Sodium Chloride 0.9% 1,000 ML IV ONE (16:42)
[2017-10-27] MEDS ORDERED: Nitroglycerin 2% Oint 1 GM UD Packet TOP ONE (16:48)
[2017-10-27 17:39] VITALS: BP 111/57
== END 2017-10-27 17:15 ==
LOC: MW.ED 15:02
DX: I21.4 Non-ST elevation (NSTEMI) myocardial infarction (principal); F17.210 Nicotine dependence, cigarettes, uncomplicated; E11.9 Type 2 diabetes mellitus without complications; I25.2 Old myocardial infarction; J44.9 Chronic obstructive pulmonary disease, unspecified; Z79.899 Other long term (current) drug therapy; Z79.82 Long term (current) use of aspirin
CPT/HCPCS: 36415; 71046; 73030; 80053; 82150; 82962; 83690; 84484; 85025; 93005; 96372; 96374; 96375; 99285; J1885; J2270; J2405; J7040; 99284; J1815-GY